=== PATIENT | male | born 1970 | race African-American/Black ===

== ENCOUNTER 2018-08-19 17:46 | Inpatient (IN) | payer SELFPAY ==
[2018-08-19 18:22] LABS: #Basophils 0.1 thou/uL (0.0-0.2); #Eosinphils 0.2 thou/uL (0.0-0.7); #Lymphocytes 2.4 thou/uL (1.20-3.40); #Neutrophils 8.1 thou/uL (1.40-6.50); %Basophils 0.6 % (0.0-1.0); %Eosinophils 1.4 % (0.0-10.0); %Lymphocytes 20.4 % (21.0-51.0); %Monocytes 8.5 % (0.0-10.0); %Neutrophils 69.1 % (42.0-75.0); Hemoglobin 15.3 g/dL (14.0-18.0); Mean Corpuscular HGB CONC 31.8 g/dL (32.0-36.0); Mean Corpuscular Hemoglobin 24.3 pg (27.0-31.0); Mean Corpuscular Volume 76.5 fL (78.0-98.0); Platelet Count 197 thou/uL (130-400); RBC Distribution Width 15.6 % (11.5-14.5); White Blood Cell (WBC) Count 11.6 thou/uL (4.8-10.8)
[2018-08-19 18:41] LABS: ALT (SGPT) 254 U/L (8-55); AST (SGOT) 138 U/L (5-34); Albumin 3.8 g/dL (3.5-5.0); Alkaline Phosphatase 251 U/L (40-150); Anion Gap 14 mmol/L (10-20); BUN (Urea Nitrogen) 8 mg/dL (8.9-20.6); Bilirubin, Total 14.4 mg/dL (0.2-1.2); Calc. Creatinine Clearance 0 mL/min (70-130); Calcium 9.5 mg/dL (7.8-10.44); Carbon Dioxide 30 mmol/L (22-29); Chloride 94 mmol/L (98-107); Estimated GFR-MDRD Greater than 90; Globulin 4.3 g/dL (2.4-3.5); Glucose 114 mg/dL (70-105); Potassium 3.4 mmol/L (3.5-5.1); Protein, Total 8.1 g/dL (6.0-8.3); Sodium 135 mmol/L (136-145)
--- NOTE | 2018-08-19 19:01 | ULT ---
RIGHT UPPER QUADRANT ULTRASOUND: HISTORY: Right upper quadrant pain. FINDINGS: Exam is limited due to patient body habitus. The gallbladder is not visualized. The visualized port ions of the liver demonstrate increased echogenicity, consistent with fatty infiltration. The common duct measures 4 mm in diameter. The right kidney is normal. The visualized portions of the pancrea s are unremarkable. No free fluid is seen. IMPRESSION: Limited examination, as above. POS: [facility]
[2018-08-19 19:25] LABS: Bilirubin, Total 13.9 mg/dL (0.2-1.2)
[2018-08-19 20:00] LABS: Bilirubin, Direct 10.5 mg/dL (0.1-0.3)
[2018-08-19] MEDS ORDERED: cloNIDine 0.1 MG TAB PO PRN (20:16)
[2018-08-19] MEDS ORDERED: Morphine 4 MG/ML VIAL SLOW IVP PRN (20:18)
[2018-08-19] MEDS ORDERED: Morphine 2 MG/ML SYRINGE SLOW IVP PRN (20:18)
[2018-08-19] MEDS ORDERED: Metoclopramide HCl 10 MG/2 ML VIAL IVP PRN (20:19)
[2018-08-19 22:11] VITALS: BMI 76.6
--- NOTE | 2018-08-19 22:31 | RAD ---
ABDOMEN TWO VIEWS: HISTORY: Abdominal pain. TECHNIQUE: Supine and upright views. FINDINGS: Scattered stool and gas seen throughout the colon. Small bowel gas pattern is unremarkable. No free air under either hemidiaphragm. Soft tissue attenuation limits the exam. IMPRESSION: Unremarkable bowel gas pattern. POS: [facility]
[2018-08-19] MEDS: Famotidine/PF 20 mg/2ml Vial SLOW IVP SCH (22:56)
[2018-08-19] MEDS: NS 0.9% w/ 20 MEQ KCL 1,000 ML/1,000 ML BAG IV SCH (22:56)
--- NOTE | 2018-08-19 23:17 | HP ---
CHIEF COMPLAINT: Stomach pain. HISTORY OF PRESENT ILLNESS: A 47-year-old male with history of morbid obesity, hypertension, dyslipidemia, who presents to the emergency room with a complaint of stomach pain. He reports that the onset was about a week ago in the right upper quadrant, which radiated to his back. He states it started about a 3/10 in intensity and describes it as a pulling sensation in his abdomen and throbbing in his back, which have both been constant. As the days have gone by, the pain has worsened to the point of being a 6/10 in intensity, starting last night and into today. He complains of anorexia, nausea, vomiting, and once had difficulty breathing secondary to the back pain, which has since resolved. He notes a prior history of similar symptoms about a year ago and states he was seen at [facility] and the symptoms resolved. He denies any diagnosis made at that time. He has noted certain foods can cause symptoms such as eggs and fried chicken. The patient has also noticed that his urine is very yellow, denies any dysuria, fevers or chills, he also denies any chest pain or difficulty breathing. There are no precipitating factors or relieving factors and he has not tried any pain medications for this. The patient also notes that he has not had a bowel movement in a week, and states he is not passing much gas. The patient evaluated in the emergency room, found to have a significantly elevated blood pressure as well as a T-bili and hospitalist called for admission. ALLERGIES: NONE KNOWN TO MEDICATION. CURRENT MEDICATIONS: Current medications reconciled with the patient; 1. Metoprolol succinate 50 mg daily. 2. Amlodipine 10 mg daily. 3. Crestor 10 mg at bedtime. 4. Lisinopril/hydrochlorothiazide 20-25 mg daily. PAST MEDICAL HISTORY: 1. Hypertension. 2. Dyslipidemia. 3. Morbid obesity. PAST SURGICAL HISTORY: Denies. SOCIAL HISTORY: Is a tobacco user, 1 pack per day, denies alcohol. 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 FAMILY HISTORY: Significant for heart disease in multiple family members. REVIEW OF SYSTEMS: Positive for anorexia, nausea, vomiting, an episode of dyspnea that has since resolved. Negative for fevers, chills, chest pain, shortness of breath and dysuria. All remaining review of systems are reviewed and negative. PHYSICAL EXAMINATION: VITAL SIGNS: Blood pressure is 184/142, pulse 75, respirations 16, temperature 98, sats 97% on room air. GENERAL: Awake, alert, responsive, in no apparent distress. Appears very comfortable, speaking in full sentences. HEENT: He has present scleral icterus. His oral mucosa is pink and dry. NECK: Supple and nontender. LYMPHATICS: No palpable cervical or supraclavicular lymphadenopathy. LUNGS: Clear to auscultation bilateral. No audible wheezing, rhonchi, or rales. HEART: Normal S1, S2. Regular rate and rhythm. No audible murmurs. ABDOMEN: Soft. Tenderness of palpation in the right upper quadrant consistent with a Ahmadi sign, no palpable abnormality. No rebound or guarding, and bowel sounds are present. EXTREMITIES: He has trace pitting edema, bilateral. SKIN: Thickened skin and hyperpigmentation of his lower extremities. NEUROLOGIC: No focal deficits. PSYCHIATRIC: Appears euthymic. Alert and oriented x4. VASCULAR: 2+ dorsalis pedis pulses. IMAGING: EKG, personally reviewed, sinus rhythm, left axis deviation, abnormal R-wave progression with a QT corrected of 467. No ST changes. Abdominal ultrasound shows fatty liver with a common bile duct of 4 mm. Gallbladder not visualized. Limited study. CT scan not performed secondary to body habitus, the patient's weight is over the weight limit for the scanner. LABORATORY DATA: CBC: 11.6, 15.3, 48.2, 197 with an MCV of 76. Chemistry: 135, 3.4, 94, 30, 8, 0.94, 114. LFTs: T. bilirubin 14.4, AST 138, ALT 254, alkaline phosphatase 251, total protein 8.1, albumin 3.9. IMPRESSION: 1. Right upper quadrant pain, elevated liver function tests concerning for an obstructive process. 2. Hypertension, uncontrolled. 3. Morbid obesity. 4. Dyslipidemia. 5. Hypokalemia, mild 6. Hyponatremia, mild. 7. Mild leukocytosis likely secondary to right upper quadrant. 8. Tobacco abuse. 9. Prolonged QT interval with a QTc of 467 PLAN: 1. Admission to the hospital. 2. IV fluid hydration, replace potassium. 3. General Surgery and GI consultation. 4. Managing his blood pressures by continuing his beta hector and calcium channel hector. We will hold his lisinopril/ hydrochlorothiazide in case any contrast studies are planned, and because the patient appears dehydrated. We will manage blood pressure with p.r.n. clonidine. Hold hydralazine as this can be associated with a hepatocellular injury. 5. Holding his statin as this may be affecting his liver. 6. N.p.o. status. 7. Avoid medications that can prolong the QT interval. Will use reglan for nausea and morphine for pain. 8. Tobacco replacement, if needed. 9. We will obtain a fasting ultrasound to further characterize his gallbladder as this was not visualized, and request Doppler study. 10. Obtain acute hepatitis panel, check coag markers. 11. We will see if able to perform an abdominal x-ray given the complaint of decreased flatus. 12. Deep venous thrombosis prophylaxis with pneumatic compression devices, if available. 13. Gastrointestinal prophylaxis. We will use IV famotidine. 14. Code status is full and surrogate decision maker is the patient's girlfriend as noted above. 15. Reviewed the plan of care with the patient. No questions or further needs at the end of evaluation. 16. The patient is at high risk given age, comorbidities and current presentation. Job ID: [id number] [id number]
[2018-08-19 23:43] LABS: HBCM Index 0.06 S/CO (0-0.79); HBSAg Index 0.32 S/CO (0-0.99); Hep A IgM AB Non-Reactive (NonReactive); Hep A IgM S/CO 0.23 S/CO (0-0.79); Hep B Surf Ag Non-Reactive S/CO (NonReactive); Hep C IgG Ab Non-Reactive (NonReactive); Hep C Index 0.04 S/CO (0-0.79); Hepatitis B Core IgM Abs Non-Reactive (NonReactive)
[2018-08-20 04:52] LABS: ALT (SGPT) 252 U/L (8-55); AST (SGOT) 139 U/L (5-34); Albumin 3.8 g/dL (3.5-5.0); Alkaline Phosphatase 257 U/L (40-150); Anion Gap 15 mmol/L (10-20); BUN (Urea Nitrogen) 8 mg/dL (8.9-20.6); Bilirubin, Total 15.3 mg/dL (0.2-1.2); Calc. Creatinine Clearance 381 mL/min (70-130); Calcium 9.6 mg/dL (7.8-10.44); Carbon Dioxide 30 mmol/L (22-29); Chloride 94 mmol/L (98-107); Estimated GFR-MDRD Greater than 90; Globulin 4.3 g/dL (2.4-3.5); Glucose 107 mg/dL (70-105); Potassium 3.6 mmol/L (3.5-5.1); Protein, Total 8.1 g/dL (6.0-8.3); Sodium 135 mmol/L (136-145)
[2018-08-20 05:28] LABS: Band 2 % (5-11); Hemoglobin 15.2 g/dL (14.0-18.0); Lymphocytes 21 % (21-51); MDiff Complete? YES; Mean Corpuscular HGB CONC 31.2 g/dL (32.0-36.0); Mean Corpuscular Volume 76.8 fL (78.0-98.0); Mean Platelet Volume 10.2 fL (7.4-10.4); Monocytes 12 % (0-10); Neutrophil 64 % (42-75); Platelet Count 196 thou/uL (130-400); Platelet Morphology Comment Appears Adequate; RBC Distribution Width 15.8 % (11.5-14.5); Red Blood Cell (RBC) Count 6.34 mill/uL (4.70-6.10); White Blood Cell (WBC) Count 11.5 thou/uL (4.8-10.8)
[2018-08-20] MEDS: NS 0.9% w/ 20 MEQ KCL 1,000 ML/1,000 ML BAG IV SCH ×3 (06:04→20:55)
[2018-08-20] MEDS: Famotidine/PF 20 mg/2ml Vial SLOW IVP SCH ×2 (09:01→20:55)
[2018-08-20] MEDS: Amlodipine 10 MG TAB PO SCH (09:01)
--- NOTE | 2018-08-20 11:22 | ULT ---
LIVER ULTRASOUND WITH DOPPLER: HISTORY: Right upper quadrant pain with elevated liver function tests. FINDINGS: The exam is limited due to patient body habitus. The liver is enlarged, measuring 24 cm in length. No definite focal mass or intrahepatic ductal dila tation is seen. The echogenicity of the liver is increased, consistent with fatty infiltration. The re are shadowing gallstones with thickening of the wall of the gallbladder, without pericholecystic f luid. The common duct measures 1.4 cm in diameter. No choledocholithiasis is seen. The spleen is n ormal, measuring 11.2 cm in length. The pancreas is not well visualized. The splenic artery is not visualized. The remainder of the hepatic, portal, and splenic vasculature is otherwise patent and de monstrates flow in the expected direction, with normal spectral wave-forms. No free fluid is seen. IMPRESSION: 1. Hepatomegaly and fatty liver. 2. Cholelithiasis with gallbladder wall thickening and common duct dilatation. POS: [facility]
[2018-08-20 11:37] LABS: Syphilis Antibody Nonreactive (Nonreactive); Syphilis Antibody Index 0.43 S/CO (<1.00 Non-Reactive)
[2018-08-20 11:40] LABS: HBCM Index 0.05 S/CO (0-0.79); HBSAg Index 0.34 S/CO (0-0.99); HIV (1/2) Antibody/Antigen Non-Reactive (NonReactive); HIV 1/2 INDEX 0.15 S/CO (<1.00); Hep A IgM AB Non-Reactive (NonReactive); Hep A IgM S/CO 0.22 S/CO (0-0.79); Hep B Core Total Ab Non-Reactive (NonReactive); Hep B Core Total Index 0.05 S/CO (0-0.79); Hep B Surf Ag Non-Reactive S/CO (NonReactive); Hep C IgG Ab Non-Reactive (NonReactive); Hep C Index 0.04 S/CO (0-0.79); Hepatitis B Core IgM Abs Non-Reactive (NonReactive)
[2018-08-20] MEDS ORDERED: Succinylcholine Chloride 20 MG/ML 10 ml SYRINGE FS ONE (11:43)
[2018-08-20] MEDS ORDERED: Dexamethasone 20 MG/5 ML VIAL ONE (11:43)
[2018-08-20] MEDS ORDERED: Lidocaine 1% PF 5 ML VIAL ONE (11:43)
[2018-08-20] MEDS ORDERED: Rocuronium Bromide 10 MG/ML (10ML VIAL) ONE (11:43)
[2018-08-20] MEDS ORDERED: ePHEDrine 50 MG/ML VIAL ONE (11:43)
[2018-08-20] MEDS ORDERED: PROPOFOL 200 MG/20 ML VIAL ONE (11:43)
[2018-08-20] MEDS ORDERED: Fentanyl 100 MCG/2 ML VIAL ONE (13:53)
[2018-08-20] MEDS ORDERED: Indomethacin 50 MG SUPP PR SCH (14:00)
[2018-08-20] MEDS ORDERED: Iothalamate Meglumine 60% 50 ML VIAL FS ONE (14:11)
[2018-08-20] MEDS ORDERED: Indomethacin 50 MG SUPP ONE (14:15)
[2018-08-20] MEDS ORDERED: Levofloxacin 500 mg/D5W 100 ml Premix Bag ONE (14:23)
[2018-08-20] MEDS ORDERED: SUGAMMADEX SODIUM 500 MG/5 ML VIAL ONE (15:21)
--- NOTE | 2018-08-20 15:49 | PDOC.EVN ---
Event Note - Event Note Event Note: Per Dr. Taylor, patient's PCP is Dr. Tran and he will be assuming care today. We will sign off for now.
[2018-08-20] MEDS ORDERED: Promethazine HCl 25 MG/ML VIAL SLOW IVP PRN (15:53)
[2018-08-20] MEDS ORDERED: Ondansetron HCl/PF 4 MG/2 ML Vial IVP PRN (15:53)
[2018-08-20] MEDS ORDERED: Promethazine HCl 25 MG/ML VIAL IM PRN (15:53)
--- NOTE | 2018-08-20 18:58 | CON ---
DATE OF CONSULTATION: 08/20/2018 HISTORY OF PRESENT ILLNESS: This is a 47-year-old morbidly obese man with a BMI 76.6. The patient presented to the emergency department with insidious onset epigastric right upper quadrant abdominal pain. The patient first experienced the 3/10 abdominal pain one week ago. He was unsure as to if this was related to fluids at the time. The pain had intensified to 6/10 yesterday. Pain is described as a sharp, radiating to his back and associated with multiple episodes of nausea, but no emesis. The patient otherwise denies any change in his bowel habits. The patient denies any fevers or chills. PAST MEDICAL HISTORY: Significant for morbid obesity, hyperlipidemia, and essential hypertension. PAST SURGICAL HISTORY: Denies any previous surgeries. SOCIAL HISTORY: He smokes a pack of cigarettes per day and has done so for over 20 years. He used to drink heavily, but has not had any alcohol over the last 1 year. 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 He denies any illicit drug abuse. FAMILY HISTORY: Notable for heart disease in various family members. PRE-HOSPITAL MEDICATIONS: Include: 1. Amlodipine 10 mg p.o. daily. 2. Lisinopril/hydrochlorothiazide combination 20/25 mg p.o. daily. 3. Metoprolol 50 mg p.o. daily. 4. Rosuvastatin 10 mg p.o. at bedtime. ALLERGIES: THE PATIENT DENIES ANY KNOWN DRUG ALLERGIES. REVIEW OF SYSTEMS: Ten-point review of systems essentially unremarkable except as stated in past medical history and chief complaint. PHYSICAL EXAMINATION: GENERAL: This reveals a 47-year-old morbidly obese man with a BMI 76.6, who is otherwise stated age. He is in no acute distress at time of my evaluation. VITAL SIGNS: Include blood pressure 136/91, pulse is 64, respiratory rate is 20, temperature 98 degrees Fahrenheit, and oxygen saturation 96% on room air. HEENT: Reveals normocephalic and atraumatic. Both pupils are equal, round, reactive to light and accommodation. He has bilateral scleral icterus present. HEART: Reveals regular rate and rhythm. No murmurs or gallops auscultated. LUNGS: Clear to auscultation bilaterally. Breathing, regular and nonlabored. ABDOMEN: Soft and morbidly obese. He has right upper quadrant tenderness to palpation with no Ahmadi sign present. Liver and spleen nonpalpable below costal margins. EXTREMITIES: Reveal 2+ radial and pedal pulses bilaterally. He has bilateral 2+ ankle edema present. NEUROLOGIC: Reveals no focal deficits present. LABORATORY FINDINGS: Today include CBC with 11,500 white blood cells, hemoglobin and hematocrit of 15.2 and 48.7 respectively. Platelet count is 196,000. Metabolic profile; sodium 135, potassium 3.6, chloride is 94, bicarb 30, BUN is 8, creatinine 0.86, glucose 107. Total bilirubin is 15.3, AST and ALT are 139 and 252 respectively. Alkaline phosphatase is also elevated at 257. Hepatitis profile is negative. I have personally reviewed radiographic studies including abdominal ultrasound, which is remarkable for multiple intraluminal gallstones. There is gallbladder wall thickening, but no pericholecystic fluid present. Common bile duct is markedly dilated for this patient's age at 14 mm. IMPRESSION: 1. Acute cholecystitis with cholelithiasis. 2. Probable choledocholithiasis. 3. Morbid obesity. 4. History of essential hypertension. RECOMMENDATIONS: 1. The patient will be evaluated by Gastroenterology in consideration for ERCP. 2. We will consider a laparoscopic cholecystectomy after ERCP has been performed. 3. Above findings and plan have been discussed with the patient. 4. I have advised him of the risks and benefits of proposed laparoscopic cholecystectomy to include but not limited to bleeding, infection, injury to bile duct or surrounding structures. 5. The patient indicates understanding information I provided him today. I have answered his questions. Thank you again, Dr. Mcginnis for allowing me the opportunity to participate in the care of this patient. Job ID: [id number]
--- NOTE | 2018-08-20 21:22 | CON ---
DATE OF CONSULTATION: 08/20/2018 REASON FOR CONSULTATION: Abnormal liver test and right upper quadrant pain. HISTORY OF PRESENT ILLNESS: Mr. Albert is a pleasant 47-year-old, who for the past year or so has been having intermittent problems of right upper quadrant pain occasionally radiating to the back. In the past month, he has had more serious bouts, where he will have severe vomiting. Once it starts, he will be sick for several days. 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 She gives most of the history. He notes that when he has had the pain that will be up in the mid upper abdomen to the right upper quadrant extending to the ridge and occasionally go right to his back between the shoulder blades or underneath the right shoulder blade. He has had no fever or chills. At this time when it happened starting about several days ago, his eyes began to yellow. His notes that his urine became dark early last week about 2 days into the illness that worsened up until yesterday when after he restarted on IV fluids, the urine started getting a little bit merry go round attendant. He denies fever or chills. He has had a lot of vomiting of bilious material. He denies weight loss. In the emergency room, he had an ultrasound done at 1600 hours last night, but radiologist reported his exam was limited secondary to poor body habitus and the gallbladder could not be seen and the duct was 4 mm in size. A repeat ultrasound was done later with enlarged liver 24 cm in length, this is fatty liver, it was showing gallstones, thickened walled gallbladder and common duct, they thought was 1.4 cm in size. Attempts were made to get a CAT scan on the patient, but this was unsuccessful secondary to his weight. The patient's notes that he gets labs fairly routinely. He has not had elevated liver tests in the past. Reviewing this in February 2018, here his liver tests were completely normal. He denies starting any new medications, sick contacts, alcohol use, or heavy Tylenol use. Labs yesterday showed a bilirubin of 14.4, the AST and ALT of 138 and 254 with alkaline phosphatase of 251. Today, bilirubin 15.3, AST and ALT of 139 and 252, alkaline phosphatase of 257. Renal function is stable. Hepatitis A, B, C, and HIV are all nonreactive. INR is 1. White count 11.5, hemoglobin 15.2, MCV 76, and platelet count 169. PAST MEDICAL HISTORY: Hypertension, hyperlipidemia, and morbid obesity. PAST SURGICAL HISTORY: None. MEDICATIONS: At home: 1. Metoprolol. 2. Amlodipine. 3. Crestor. 4. Lisinopril/hydrochlorothiazide. SOCIAL HISTORY: The patient smokes one pack per day. Denies alcohol use. 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 FAMILY HISTORY: Coronary artery disease in multiple family members. REVIEW OF SYSTEMS: Anorexia, nausea, vomiting, abdominal pain. No fever, chills, shortness of breath, dysuria, frequency, urgency, or chest pain at this time. PHYSICAL EXAMINATION: GENERAL: Mr. Albert is resting comfortably in bed. He has multiple family members at his bedside. VITAL SIGNS: His weight on admission was 556 pounds. Temperature is 98, pulse 66, and blood pressure 141/97. LUNGS: Clear. HEART: Distant heart sounds. ABDOMEN: Morbidly obese. No organomegaly can be palpated, but this is due to body habitus. There is mild tenderness in epigastric right upper quadrant, but not much. EXTREMITIES: Reveal brawny edema and venous stasis. He is alert and oriented to person, place, and time. LABORATORY DATA: Noted on admission, his lipase was 39 at 1900 hours yesterday. ASSESSMENT: This is a 47-year-old gentleman, morbid obesity, who has come in with right upper quadrant pain and symptoms consistent with biliary colic over the past year or so. Over the past month, they have been worse. Over the past week, he has been jaundiced with cholestatic liver enzymes. Initial ultrasound showed fatty liver, but could not make out much of anything else, so repeat exam they were able to make out gallstones and 1.4 cm common bile duct. This would go along with suspected choledocholithiasis. Unfortunately, he was unable to get a CAT scan for further evaluation of the large liver. Because of his size, the CAT scan could not hold him. RECOMMENDATIONS: At this time, I have talked with Dr. Padilla, General Surgery and he prefers to proceed with ERCP before lap demarcus, which sounds reasonable in light of his elevated numbers. I talked with him and his significant other about the risks of the procedure that is pancreatitis, perforation, bleeding, reaction to medication, aspiration, anesthetic events, and the possible that we could not get into the bile duct to remove stones. He understands these. I also explained to him the rationale for proceeding with that which makes the laparoscopic cholecystectomy much easier form, we have to open to clear the bile duct for investigated and also that he would be at risk for pancreatitis with choledocholithiasis or even cholangitis fully life-threatening. He understands these and wished to proceed. We will go and do that today. Job ID: [id number]
--- NOTE | 2018-08-20 21:27 | RAD ---
ERCP: 08/20/18 HISTORY: Stent placement. This is a series of twelve C-arm films which show a biliary stent being placed. It appears to be in g ood position. IMPRESSION: Placement of biliary stent. POS: [facility]
[2018-08-21] MEDS: NS 0.9% w/ 20 MEQ KCL 1,000 ML/1,000 ML BAG IV SCH ×2 (05:15→19:06)
[2018-08-21] MEDS ORDERED: Iothalamate Meglumine 60% 50 ML VIAL FS ONE (06:33)
[2018-08-21] MEDS ORDERED: Bupivacaine/Epinephrine 0.25% 30 ML VIAL ONE ×2 (06:33→12:14)
[2018-08-21 06:35] LABS: ALT (SGPT) 214 U/L (8-55); AST (SGOT) 110 U/L (5-34); Albumin 3.5 g/dL (3.5-5.0); Alkaline Phosphatase 236 U/L (40-150); Anion Gap 11 mmol/L (10-20); BUN (Urea Nitrogen) 10 mg/dL (8.9-20.6); Bilirubin, Total 9.6 mg/dL (0.2-1.2); Calc. Creatinine Clearance 356 mL/min (70-130); Calcium 9.1 mg/dL (7.8-10.44); Carbon Dioxide 30 mmol/L (22-29); Chloride 97 mmol/L (98-107); Estimated GFR-MDRD Greater than 90; Globulin 3.8 g/dL (2.4-3.5); Glucose 109 mg/dL (70-105); Lipase 11 U/L (8-78); Potassium 3.5 mmol/L (3.5-5.1); Protein, Total 7.3 g/dL (6.0-8.3); Sodium 134 mmol/L (136-145)
[2018-08-21] MEDS ORDERED: Potassium Chloride 20 MEQ TAB PO SCH (07:00)
[2018-08-21 08:03] LABS: Hemoglobin 13.8 g/dL (14.0-18.0); Mean Corpuscular Hemoglobin 23.1 pg (27.0-31.0); Mean Platelet Volume 10.5 fL (7.4-10.4); Platelet Count 193 thou/uL (130-400); RBC Distribution Width 15.5 % (11.5-14.5); Red Blood Cell (RBC) Count 5.97 mill/uL (4.70-6.10); White Blood Cell (WBC) Count 14.6 thou/uL (4.8-10.8)
[2018-08-21 08:17] LABS: Band 1 % (5-11); Hypochromia SLIGHT = 6-15 cells (100X) (0-5/hpf); Lymphocytes 19 % (21-51); MDiff Complete? YES; Microcytosis SLIGHT = 6-15 cells (100X) (0-5/hpf); Monocytes 4 % (0-10); Neutrophil 76 % (42-75); Platelet Morphology Comment Appears Adequate; Polychromasia SLIGHT = 2-3 cells (100X) (0-2/hpf); Target Cells MODERATE= 6-15 cells (100X) (0-1/hpf)
--- NOTE | 2018-08-21 09:58 | OP ---
DATE OF PROCEDURE: 08/20/2018 PROCEDURE PERFORMED: ERCP with sphincterotomy and placement of a 7 cm x 11.5-Azeri plastic stent for biliary obstruction. PREPROCEDURE DIAGNOSES: Recurrent abdominal pain suggestive of biliary colic with elevated LFTs and obstructive pattern and an ultrasound that reportedly showed dilated common bile duct and gallstones suggestive of choledocholithiasis. POSTPROCEDURE DIAGNOSES: 1. Dilated common bile duct to least 15 mm, dilated intrahepatic biliary tree. 2. No obvious transition point was seen, but in the mid common bile duct became very difficult to pass the large balloon, also after occlusion cholangiogram, the duct distal to the mid duct would drain very quickly, but without a well-defined stricture in this area. 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 3. Sphincterotomy was performed and an 11.5-Azeri x 7 cm plastic stent was placed in the biliary tree with good drainage of contrast. There was never drainage of the bile seen. RECOMMENDATIONS: 1. Typically, we would recommend MRCP at this point in time, but the patient is too large for either our MRI machine here or the CT scan machine. Plans are for tomorrow for laparoscopy with possible laparotomy. I have informed the surgeon that there may be risk of a Mirizzi syndrome that a biliary stent is in place to help guide with anatomy if needed. 2. Agree with plan for lap demarcus tomorrow. 3. The patient will need ERCP for stent removal at a later date, should be able to perform this in a supine position and will have to be intubated, hopefully. 4. Repeat LFTs tomorrow. 5. Continue IV antibiotics. ANESTHESIA: General endotracheal anesthesia, Indocin rectal 100 mg, Levaquin 500 mg IV. DESCRIPTION OF PROCEDURE: The patient was informed of the risks, benefits, and possible complications of endoscopy including perforation, bleeding, reaction to medication, aspiration, and informed consent was obtained. We informed the risks specifically of pancreatitis, perforation, bleeding, aspiration, and anesthetic complications. He was intubated and then carefully turned to the prone position on the table. We tried to do it supine, but I could not get good orientation to the ampulla for cannulation. Once he was in place, a side-viewing duodenoscope was advanced through the bite block into the esophagus and the second and third portions. The ampulla was brought into view. Free cannulation obtained easily, but the guide catheter seemed to stop at the mid common bile duct. Cholangiogram however filled all the bile duct to about a centimeter and a half. There was concern for possible filling defect or narrowing behind the scope and was not as good filling here but no distinct lesion such as a stone. 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 It was difficult to get fluoroscopic images secondary to the equipment in the operating room and the fact that it was difficult getting good images for the patient's size. Ultimately, the decision was made to sweep the duct with a 12-18 mm balloon, which was done three times, the contrast would come through, but the balloon would come with kind of quite a bit of resistance at the mid common bile duct, again that would come through, inflated to 15 mm without difficulty. Ultimately, we did not identify distinct stone in this region, decision was made to place a stent. A 7 cm x 11.5-Azeri stent was placed across this region with good drainage of contrast documented endoscopically and fluoroscopically with slow drainage of the intrahepatic ducts even but no bile was ever seen. The scope was removed. The patient tolerated the procedure well with no complications. Recommendations as above. I have discussed the findings with General Surgery. Job ID: [id number]
[2018-08-21] MEDS ORDERED: CEFAZOLIN 1 GM VIAL ONE (12:02)
[2018-08-21] MEDS ORDERED: Rocuronium Bromide 50 MG/5 ML VIAL ONE (14:01)
[2018-08-21] MEDS ORDERED: Phenylephrine HCL 10 MG/ML VIAL ONE (14:21)
[2018-08-21] MEDS ORDERED: Ondansetron PF 4 MG/2 ML Vial ONE (14:21)
[2018-08-21] MEDS ORDERED: Rocuronium Bromide 10 MG/ML (10ML VIAL) ONE (14:21)
[2018-08-21] MEDS ORDERED: Succinylcholine Chloride 20 MG/ML 10 ml SYRINGE FS ONE (14:21)
[2018-08-21] MEDS ORDERED: PROPOFOL 200 MG/20 ML VIAL ONE (14:21)
[2018-08-21] MEDS ORDERED: Ketorolac Tromethamine 30 MG/ML VIAL ONE (14:21)
[2018-08-21] MEDS ORDERED: Glycopyrrolate 0.2 MG/ML 5 ML SYRINGE ONE (14:21)
[2018-08-21] MEDS ORDERED: Dexamethasone 20 MG/5 ML VIAL ONE (14:21)
[2018-08-21] MEDS ORDERED: Lidocaine 1% PF 5 ML VIAL ONE (14:21)
[2018-08-21] MEDS ORDERED: Ondansetron HCl/PF 4 MG/2 ML Vial IVP PRN (15:40)
[2018-08-21] MEDS ORDERED: Promethazine HCl 25 MG/ML VIAL SLOW IVP PRN (15:40)
[2018-08-21] MEDS ORDERED: Promethazine HCl 25 MG/ML VIAL IM PRN (15:40)
[2018-08-21] MEDS ORDERED: HYDROcodone/Acetaminophen 10/325 mg Tablet PO PRN (16:18)
[2018-08-21] MEDS ORDERED: Ibuprofen 600 MG TAB PO PRN (16:18)
[2018-08-21] MEDS ORDERED: traMADol HCl 50 MG TAB PO PRN ×2 (16:29→16:30)
[2018-08-21] MEDS: Famotidine/PF 20 mg/2ml Vial SLOW IVP SCH ×2 (17:54→20:42)
--- NOTE | 2018-08-21 17:56 | OP ---
DATE OF PROCEDURE: 08/21/2018 PREOPERATIVE DIAGNOSIS: Acute cholecystitis with cholelithiasis. POSTOPERATIVE DIAGNOSIS: Acute cholecystitis with cholelithiasis. OPERATION PERFORMED: Laparoscopic cholecystectomy. ANESTHESIA: General endotracheal. ESTIMATED BLOOD LOSS: 200 mL. FLUIDS GIVEN: 2000 mL crystalloids. COUNTS: Sponge and instrument counts were reported as correct x2. COMPLICATIONS: None apparent at the time of operation. INDICATIONS FOR OPERATION: A 47-year-old man, who is morbidly obese with a BMI of 76.6. The patient was admitted with acute cholecystitis with cholelithiasis and suspected choledocholithiasis. He underwent an uneventful ERCP yesterday with sphincterotomy and biliary stent placement. LFTs were resolving by today, although still markedly elevated. The patient was brought to the operating room today for laparoscopic cholecystectomy. Findings are consistent with contracted intrahepatic gallbladder with significant omental adhesions. DESCRIPTION OF OPERATION: Informed consent was obtained from the patient. He was brought to the operating room and placed in supine position. Following general anesthesia, the abdomen was sterilely prepped and draped in usual fashion. The skin in the right upper quadrant was anesthetized with 1% lidocaine plain. A stab incision was made here using an 11 scalpel. Through this, a Veress needle was inserted and placed in the peritoneal cavity, through which the abdomen was insufflated with 2 L of CO2 gas. Intraabdominal pressure was noted at 4 mmHg. Following abdominal insufflation, Veress needle was removed and a 5 mm trocar introduced using a Visiport under laparoscopy. Laparoscopy confirmed proper placement of the port, no injuries to underlying structures. Under direct laparoscopy, a 5 mm supraumbilical, right lateral subcostal and a 12 mm epigastric ports were placed after the overlying skin was infiltrated with 0.25% Marcaine with epinephrine, and appropriate incision was then made. The patient was placed in reverse Trendelenburg position, unable to rotate the patient to the left due to significant abdominal obesity with large panniculus, which made placement difficult. I introduced the Prestige grasper through the epigastric port site, using this to elevate the liver. Omental adhesions were then meticulously taken down to reveal the fundus of the contracted gallbladder. Another Prestige grasper was introduced through the right lateral subcostal port, grasping the fundus of the gallbladder, which was slightly elevated cephalad. Omental adhesions were then tediously, but meticulously taken down from the remainder of the gallbladder. A second Prestige grasper was introduced through the right medial subcostal port. I grasped the Niranjan pouch, which was retracted laterally. The cystic artery which was anterior coursing was dissected free from surrounding structures at the triangle of Calot. The artery was divided between clips, applying 2 clips proximally and 1 clip at the junction of the cystic artery and gallbladder. The cystic duct was markedly dilated. This was dissected free from surrounding structures. I attempted to divide this between clips, but was not able to apply the clip all the way through. The cystic duct stump was then secured using an Endoloop. The gallbladder itself was removed from the liver bed using cautery and delivered off the abdominal cavity using an EndoCatch. Operative site was inspected for good hemostasis. There was a fair amount of blood loss during the dissection. Hemostasis was readily achieved at the gallbladder fossa, however, using 1 x 2 inch piece of Fibrillar. A #19 Quintin drain was introduced into the subhepatic space and allowed to exit the abdominal cavity through the right lateral subcostal port. Fascia of the epigastric port was then closed using 0 Vicryl suture and Endoclosure device under laparoscopy. The abdomen was desufflated. All ports and instruments were removed and accounted for. Skin incisions were closed using 4-0 Monocryl suture in subcuticular fashion. Dermabond was applied over incisional closure. The patient tolerated the operation without any apparent complication and was returned to recovery room in satisfactory condition. Job ID: [id number]
[2018-08-21] MEDS ORDERED: Ketorolac Tromethamine 30 MG/ML VIAL IVP SCH (18:00)
[2018-08-21] MEDS ORDERED: traMADol HCl 50 MG TAB PO SCH (18:00)
[2018-08-21] MEDS: Acetaminophen 325 MG TAB PO SCH ×2 (18:12→23:14)
[2018-08-21] MEDS: Amlodipine 10 MG TAB PO SCH (18:12)
--- NOTE | 2018-08-21 20:40 | PRG ---
DATE OF SERVICE: 08/21/2018 SUBJECTIVE: Mr. Albert is a 47-year-old, had ERCP with stent yesterday and had a lap demarcus today. Apparently, there was quite a bit of inflammation. Presently, the patient is doing well. He is tolerating diet. He has a AGUS drain on the right side. OBJECTIVE: VITAL SIGNS: Temperature is 98, pulse 81, and blood pressure 117/111 to 158/100. ABDOMEN: Nontender. He is very morbidly obese. I am unable to palpate any tenderness or organomegaly. LABORATORY DATA: White count 14, hemoglobin 13, MCV 77, platelet count 76. Bilirubin is 9.6 down from 14 yesterday. AST and ALT are 110 and 214 down from 138 and 254. Alkaline phosphatase is 236 down from 251. Lipase 11. Hepatitis A, B, and C and HIV studies are negative. ASSESSMENT: 1. Questionable biliary obstruction. He may have had a little bit of Mirizzi syndrome. There are no overt stones in the duct. The stent was left in place. 2. Apparently, he had severe cholecystitis, then cholecystectomy today. His AGUS drain intact in space. RECOMMENDATIONS: Continue antibiotics. Advance diet as tolerated. We will follow along with surgery. He will need his stent removed in about a month. Job ID: [id number]
[2018-08-21] MEDS: Ketorolac Tromethamine 30 MG/ML VIAL IVP SCH (20:43)
[2018-08-22] MEDS: Ketorolac Tromethamine 30 MG/ML VIAL IVP SCH (03:54)
[2018-08-22] MEDS: Acetaminophen 325 MG TAB PO SCH ×3 (05:18→17:29)
[2018-08-22 05:41] LABS: Hemoglobin 13.8 g/dL (14.0-18.0); Lymphocytes 22 % (21-51); MDiff Complete? YES; Mean Corpuscular HGB CONC 32.4 g/dL (32.0-36.0); Mean Corpuscular Hemoglobin 24.7 pg (27.0-31.0); Mean Corpuscular Volume 76.2 fL (78.0-98.0); Mean Platelet Volume 10.4 fL (7.4-10.4); Monocytes 8 % (0-10); Neutrophil 70 % (42-75); Platelet Count 185 thou/uL (130-400); Platelet Morphology Comment Appears Adequate; RBC Distribution Width 15.4 % (11.5-14.5); Red Blood Cell (RBC) Count 5.58 mill/uL (4.70-6.10); White Blood Cell (WBC) Count 15.3 thou/uL (4.8-10.8)
[2018-08-22] MEDS ORDERED: Senokot 8.6 MG TAB PO PRN (06:28)
[2018-08-22] MEDS: Amlodipine 10 MG TAB PO SCH (09:13)
[2018-08-22] MEDS: Ibuprofen 800 MG TAB PO SCH ×2 (09:13→17:28)
[2018-08-22] MEDS: Enoxaparin Sodium 40 MG/0.4 ML SYRINGE SC SCH ×2 (09:14→20:31)
[2018-08-22] MEDS: Famotidine/PF 20 mg/2ml Vial SLOW IVP SCH ×2 (09:14→20:31)
[2018-08-22] MEDS: Polyethylene Glycol 3350 17 GM Packet PO SCH (09:15)
[2018-08-22 12:12] LABS: ALT (SGPT) 300 U/L (8-55); AST (SGOT) 262 U/L (5-34); Albumin 3.3 g/dL (3.5-5.0); Alkaline Phosphatase 244 U/L (40-150); Anion Gap 14 mmol/L (10-20); BUN (Urea Nitrogen) 14 mg/dL (8.9-20.6); Bilirubin, Direct 7.9 mg/dL (0.1-0.3); Bilirubin, Total 12.7 mg/dL (0.2-1.2); Calc. Creatinine Clearance 368 mL/min (70-130); Carbon Dioxide 27 mmol/L (22-29); Chloride 99 mmol/L (98-107); Estimated GFR-MDRD Greater than 90; Glucose 108 mg/dL (70-105); Potassium 4.5 mmol/L (3.5-5.1); Protein, Total 7.5 g/dL (6.0-8.3); Sodium 135 mmol/L (136-145)
--- NOTE | 2018-08-22 13:51 | PRG ---
DATE OF SERVICE: 08/22/2018 SUBJECTIVE: The patient is feeling well this morning. Pain is well controlled with medications. He has not passed any gas or had a bowel movement, but has been up walking in the halls. He had tolerated a clear liquid diet last night for dinner, but did not realize he could call and order breakfast this morning. He will have a regular diet for lunch. He had 4 bowel movements yesterday. OBJECTIVE: VITAL SIGNS: Blood pressure 120/81, temperature 98, pulse is 70, respirations 14, SpO2 93% on room air. GENERAL: Morbidly obese male, in no acute distress. Alert and oriented. HEENT: Normocephalic, atraumatic. Bilateral scleral icterus. NECK: Supple. Trachea midline. CARDIAC: Regular rate and rhythm. No murmurs. LUNGS: Clear to auscultation bilaterally. No respiratory distress. ABDOMEN: Morbidly obese. Appropriately tender to palpation. No rigidity or rebound. He has umbilical incision, epigastric, and two right subcostal incisions are clean, dry, and intact. The epigastric incision, an epigastric bandage was covered with serosanguineous drainage. This was changed. AGUS drain with minimal serosanguineous fluid. EXTREMITIES: 2+ radial pulses bilateral. Bilateral 2+ ankle edema. Moves all four extremities. NEURO: No focal deficits. LABORATORY FINDINGS: White blood cell count 15.3, hemoglobin 13.8, hematocrit 42.5. Sodium 135, glucose 108, total bilirubin 12.7, direct bilirubin 7.9, AST 262, ALT 300, alkaline phosphatase 244, albumin 3.3. Hepatitis studies, hepatitis, HIV, and RPR nonreactive. ASSESSMENT: 1. Acute cholecystitis with cholelithiasis. 2. Choledocholithiasis, possible Mirizzi syndrome. 3. Morbid obesity. 4. Essential hypertension. PLAN: The patient is postoperative day #1, status post laparoscopic cholecystectomy with multiple adhesions during surgery. He has been seen by GI, where he underwent ERCP with stent placement prior to cholecystectomy. We will discontinue Levaquin today as well as adjust the patient's pain regimen of by discontinuing tramadol and changing Toradol to p.o. ibuprofen and continue Tylenol. He is tolerating clear liquid diet. We will advance this to a regular diet. We started a bowel regimen of senna and MiraLAX. Hepatitis studies have been negative. He is clear from a surgical standpoint for discharge. This patient was seen and evaluated by Dr. Padilla during morning rounds. Plan was discussed with the patient and family, who are in agreement with the plan. Job ID: [id number]
[2018-08-23] MEDS ORDERED: Acetaminophen 325 MG TAB ONE (05:13)
[2018-08-23] MEDS: Famotidine/PF 20 mg/2ml Vial SLOW IVP SCH ×2 (10:02→19:39)
[2018-08-23] MEDS: Amlodipine 10 MG TAB PO SCH (10:04)
[2018-08-23] MEDS: Ibuprofen 800 MG TAB PO SCH ×3 (10:04→17:13)
[2018-08-23] MEDS: Polyethylene Glycol 3350 17 GM Packet PO SCH (10:04)
[2018-08-23] MEDS: Enoxaparin Sodium 40 MG/0.4 ML SYRINGE SC SCH ×2 (10:04→19:39)
[2018-08-23] MEDS: Acetaminophen 325 MG TAB PO SCH ×3 (10:05→17:13)
[2018-08-23 10:27] LABS: #Lymphocytes 2.4 thou/uL (1.20-3.40); #Monocytes 1.3 thou/uL (0.11-0.59); #Neutrophils 8.7 thou/uL (1.40-6.50); %Basophils 0.3 % (0.0-1.0); %Eosinophils 0.9 % (0.0-10.0); %Lymphocytes 19.3 % (21.0-51.0); %Monocytes 10.1 % (0.0-10.0); %Neutrophils 69.3 % (42.0-75.0); Hemoglobin 12.7 g/dL (14.0-18.0); Mean Corpuscular HGB CONC 32.2 g/dL (32.0-36.0); Mean Corpuscular Hemoglobin 24.7 pg (27.0-31.0); Mean Corpuscular Volume 76.6 fL (78.0-98.0); Mean Platelet Volume 10.8 fL (7.4-10.4); Platelet Count 186 thou/uL (130-400); RBC Distribution Width 15.6 % (11.5-14.5); Red Blood Cell (RBC) Count 5.14 mill/uL (4.70-6.10); White Blood Cell (WBC) Count 12.5 thou/uL (4.8-10.8)
[2018-08-23 10:28] LABS: #Eosinphils 0.1 thou/uL (0.0-0.7)
--- NOTE | 2018-08-23 11:16 | PRG ---
DATE OF SERVICE: 08/22/2018 SUBJECTIVE: Mr. Albert is resting up in chair comfortably. He had his AGUS pulled today. The nurse notes he has had some leakage of drainage at the AGUS site, bandage has been placed now. He denies any overt pain or fever. He has only voided a very little bit. The patient states he has actually voided none today. OBJECTIVE: VITAL SIGNS: Temperature is 98, pulse 73, blood pressure is 120/85. He is sitting up in a chair against the wall. GENERAL: He is in no overt distress. LUNGS: Clear. HEART: Regular rate and rhythm without clicks or murmurs. ABDOMEN: Protuberant and obese. He has a dressing where the AGUS site was and it is wet. His trocar sites look fine. EXTREMITIES: Reveal brawny edema. LABORATORY DATA: White count 15.3, up from 11.6 on admission; platelet count is 185; hemoglobin 13.8. Sodium 135, BUN and creatinine are 14 and 0.89. Bilirubin has jumped up to 12.7 from 9.6 yesterday, it was 14.4 on admission. AST is 262, it was 138 on admission. ALT is 300, it was 254 on admission. Alkaline phosphatase is 344, it was 251 on admission. ASSESSMENT: I talked to Dr. Padilla. The patient has severe cholecystitis. It was a difficult surgery secondary to body habitus as was an ERCP for that same reason. his elevated liver enzymes maybe a combination of perihepatitis with severe gallbladder disease. He may have had some extrinsic compression of the biliary tree from the severe gallbladder disease, although, ERCP films are very difficult to interpret secondary to body habitus and poor penetration, but he did seem to have the entire biliary tree, intrahepatic, common bile duct, all dilated. Stent is in place. His liver tests have been fluctuating. He does not appear to be septic at all, but I think that in light of his size, the difficulty he has had with imaging, the difficulty he had with surgery, he should remain in the hospital until we see some improvement in his LFTs. If his LFTs are not improving tomorrow, we will try to get a HIDA scan as he could not get a CT scan. We may be able to get a HIDA scan just to see if the liver is draining. We will continue to follow with you. We will restart his antibiotics. We will continue DVT prophylaxis. I had discussed this with Dr. Tran and Dr. Padilla. Job ID: [id number]
--- NOTE | 2018-08-23 12:39 | PRG ---
DATE OF SERVICE: 08/23/2018 SUBJECTIVE: The patient is feeling well this morning. He is ambulating in the [place] without difficulty. Pain is well controlled with medications. He is still not passing any gas or had bowel movement. He is tolerating regular diet. He denies any change in abdominal pain from yesterday. OBJECTIVE: VITAL SIGNS: Blood pressure 143/85, temperature 97.9, pulse 61, respirations 16, and SpO2 of 97% on room air. GENERAL: Morbidly obese male, in no acute distress. Alert and oriented. HEENT: Normocephalic and atraumatic. Bilateral scleral icterus. NECK: Supple. Trachea midline. CARDIAC: Regular rate and rhythm. No murmurs. LUNGS: Clear to auscultation bilaterally. No respiratory distress. ABDOMEN: Morbidly obese. Nontender to palpation. No rigidity or rebound. Umbilical and epigastric incision clean, dry, and intact. Two right subcostal incisions, one draining serosanguineous fluid. EXTREMITIES: 2+ radial pulses bilaterally. Moves all 4 extremities. NEUROLOGIC: No focal deficits. LABORATORY FINDING: White blood cell count 12.5, hemoglobin 12.7, hematocrit 39.4. Transaminases have decreased from yesterday. Please see medical record for exact values. Total bilirubin 16.5, increased from yesterday at 12.7. DIAGNOSTIC IMAGING: There are no new diagnostics to review. ASSESSMENT: 1. Acute cholecystitis with cholelithiasis. 2. Choledocholithiasis, possible Mirizzi syndrome. 3. Morbid obesity. 4. Essential hypertension. PLAN: The patient is postop day #2 status post laparoscopic cholecystectomy with multiple adhesions. He is being followed by GI. His liver enzymes have decreased today, but his total bilirubin has increased to 16.5. He will go for a HIDA scan today. Levaquin has been restarted. We will continue to take the patient's current pain regimen and bowel regimen. This patient was discussed with Dr. Padilla during morning rounds. Plan was discussed with the patient and family, who are in agreement with the plan. Job ID: [id number] MTDD
[2018-08-23 15:44] LABS: Albumin 3.3 g/dL (3.5-5.0); Anion Gap 12 mmol/L (10-20); BUN (Urea Nitrogen) 15 mg/dL (8.9-20.6); Bilirubin, Total 16.5 mg/dL (0.2-1.2); Calc. Creatinine Clearance 404 mL/min (70-130); Calcium 8.9 mg/dL (7.8-10.44); Carbon Dioxide 28 mmol/L (22-29); Chloride 98 mmol/L (98-107); Estimated GFR-MDRD Greater than 90; Globulin 3.4 g/dL (2.4-3.5); Glucose 120 mg/dL (70-105); Potassium 3.4 mmol/L (3.5-5.1); Protein, Total 6.7 g/dL (6.0-8.3); Sodium 135 mmol/L (136-145)
[2018-08-23 15:45] LABS: ALT (SGPT) 280 U/L (8-55); AST (SGOT) 185 U/L (5-34); Alkaline Phosphatase 291 U/L (40-150)
--- NOTE | 2018-08-23 16:15 | NM ---
EXAM: NM Hida (No EF) PROVIDED CLINICAL HISTORY: Elevated bilirubin post ERCP and cholecystectomy. Pharmaceuticals: 5.1 mCi technetium 99m mebrofenin, IV COMPARISON: None FINDINGS: There is prompt uptake of radiotracer by the liver with increase in activity in the liver throughout the study imaging up to 60 minutes. There also appears to be increased blood pool activity within the region of the heart. However, there is no activity seen in the region of the bile ducts, and ther e is no bowel activity after 60 minutes. A 4 hour delayed image was obtained, and again no activity is seen in the expected region of the bile ducts or in the small bowel. There is a focus of increased uptake seen within the midline overlying the pelvis likely related to uptake within the urinary bladder secondary to absence of activity in the bile ducts. IMPRESSION: 1. Prompt uptake of radiotracer by the liver without activity seen within the bile ducts or small bow el. Differential considerations would include hepatic dysfunction or biliary ductal obstruction.
[2018-08-23 16:33] LABS: Bilirubin, Direct 12.1 mg/dL (0.1-0.3)
[2018-08-23] MEDS ORDERED: Ibuprofen 800 MG TAB PO PRN (17:39)
[2018-08-23 18:43] LABS: ALT (SGPT) 264 U/L (8-55); AST (SGOT) 164 U/L (5-34); Albumin 3.4 g/dL (3.5-5.0); Alkaline Phosphatase 303 U/L (40-150); Bilirubin, Total 17.2 mg/dL (0.2-1.2)
[2018-08-23 19:07] LABS: Bilirubin, Direct 12.5 mg/dL (0.1-0.3)
[2018-08-24 05:23] LABS: Phosphorus 2.6 mg/dL (2.3-4.7)
[2018-08-24 05:26] LABS: ALT (SGPT) 231 U/L (8-55); AST (SGOT) 135 U/L (5-34); Albumin 3.2 g/dL (3.5-5.0); Alkaline Phosphatase 290 U/L (40-150); Anion Gap 10 mmol/L (10-20); BUN (Urea Nitrogen) 11 mg/dL (8.9-20.6); Bilirubin, Total 17.7 mg/dL (0.2-1.2); Calc. Creatinine Clearance 390 mL/min (70-130); Calcium 8.7 mg/dL (7.8-10.44); Carbon Dioxide 31 mmol/L (22-29); Chloride 98 mmol/L (98-107); Estimated GFR-MDRD Greater than 90; Glucose 115 mg/dL (70-105); Magnesium 1.9 mg/dL (1.6-2.6); Potassium 3.4 mmol/L (3.5-5.1); Protein, Total 6.5 g/dL (6.0-8.3); Sodium 136 mmol/L (136-145)
[2018-08-24 05:29] LABS: Band 1 % (5-11); Hemoglobin 11.6 g/dL (14.0-18.0); Lymphocytes 22 % (21-51); MDiff Complete? YES; Mean Corpuscular HGB CONC 32.6 g/dL (32.0-36.0); Mean Corpuscular Hemoglobin 25.1 pg (27.0-31.0); Mean Corpuscular Volume 76.9 fL (78.0-98.0); Mean Platelet Volume 10.4 fL (7.4-10.4); Monocytes 10 % (0-10); Neutrophil 67 % (42-75); Platelet Count 182 thou/uL (130-400); RBC Distribution Width 15.3 % (11.5-14.5); Red Blood Cell (RBC) Count 4.64 mill/uL (4.70-6.10); Target Cells SLIGHT = 2-5 cells (100X) (0-1/hpf); White Blood Cell (WBC) Count 11.4 thou/uL (4.8-10.8)
[2018-08-24 06:15] LABS: Bilirubin, Direct 13.2 mg/dL (0.1-0.3)
--- NOTE | 2018-08-24 08:20 | PRG ---
DATE OF SERVICE: 08/23/2018 SUBJECTIVE: Mr. Albert feels well. His temperature is 97, pulse 65, and blood pressure 135/78. States he is voiding, he is eating, and feels much better. His does note his eyes appear jaundiced especially when the sun comes through the windows in the afternoon. Abdomen is noted for good site of drainage. No evidence of leaks. LABORATORY DATA: White count 12.5, hemoglobin 12.7, MCV 76, and platelet count 186. Chemistries; bilirubins 17.2 up from 16.5, it was 15.3 on admission. AST and ALT are a little lower than yesterday, but higher than admission at 164 and 264. Alkaline phosphatase is 303. A hepatobiliary scan was performed on 08/23/2018. Today, there is proper uptake radiotracer liver without activity seen within the bile ducts or small bowel. This could be the result of hepatic dysfunction, biliary obstruction, and very dilated biliary tree. ASSESSMENT: 1. Status post laparoscopic cholecystectomy for acute on chronic cholecystitis. The surgery was very difficult secondary to body habitus. 2. The patient had very typical abdominal pain and biliary colic symptoms prior to admission. On admission, he had elevated bilirubin. The imaging study showed dilated bile ducts, but these were very limited studies and we could not get CAT scan or cross-sectional imaging or magnetic resonance cholangiopancreatography because of his body habitus and his weight not fitting in the machines here. An endoscopic retrograde cholangiopancreatography was performed, which revealed dilated ducts in the liver and in the common hepatic and common bile duct, but no overt obstruction was seen. Stent was placed with good drainage of contrast, but never any drainage of bile. At this point in time, I am concerned that our limitations and imaging are related to body habitus. It left me unsure of whether or not we are dealing with some ongoing obstruction or whether or not this maybe a primary hepatic dysfunction. PLAN: We will review all films with radiologist tomorrow. We will check labs tomorrow. We will continue antibiotics. I think if his numbers continue to accelerate, our options are to try and transfer to a facility, where there is opportunity for imaging or repeating his endoscopic retrograde cholangiopancreatography. I am not sure if repeating his ERCP will be helpful if the stent has migrated out or seems to be malpositioned in some way, but in terms of getting better imaging, I am not sure it is going to happen in light of the body habitus and difficulty with previous endoscopic retrograde cholangiopancreatography with the C-arm in the operating room. We will follow along with you. These issues were discussed with the patient and his . Job ID: [id number]
--- NOTE | 2018-08-24 13:39 | PRG ---
DATE OF SERVICE: 08/24/2018 SUBJECTIVE: Mr. Alfonso Albert is a 47-year-old male, who is postop day 3, status post laparoscopic cholecystectomy. Postoperatively, the patient has done well. He is mobilizing. His pain is controlled and he is tolerating a diet. However, his total bilirubin continues to elevate. There was some persistent drainage post removal of his AGUS drain as well. Upon our evaluation this morning, the patient reports that Dr. Faulkner is planning for another ERCP later today. The patient is currently n.p.o. He appears to be in good spirits and vocalized no complaint to us. OBJECTIVE: VITAL SIGNS: Temperature 97, pulse 67, respirations 20, O2 saturation 96% on room air, and blood pressure 138/89. GENERAL: Sitting in chair, out of bed. PULMONARY: Normal work of breathing. Symmetric rise. CARDIOVASCULAR: Regular rate and rhythm. GI: Abdomen is large, obtund. Surgical sites are clean, dry, and intact. Dressing placed over right lower abdominal port site. He has minimal strikethrough and remains intact. Abdomen is soft, nontender, and nondistended. MUSCULOSKELETAL: Moves all extremities x4. NEURO: No focal deficit is noted. LABORATORY FINDINGS: WBC 11.4, hemoglobin 11.6, hematocrit 35.7, and platelet count 182. Sodium 136, potassium 3.4, chloride 98, carbon dioxide 31, BUN 11, creatinine 0.84, glucose 115, T-bilirubin 17.7, direct bilirubin 13.2, AST 135, ALT 231, alkaline phosphatase 290, and albumin 3.2. ASSESSMENT: 1. Status post laparoscopic cholecystectomy postop day three. 2. Acute cholecystitis with cholelithiasis. 3. Morbid obesity. 4. History of hypertension. 5. Electrolyte abnormality. 6. Persistently elevated LFTs. PLAN: Levaquin restarted by GI. The patient is currently n.p.o. and awaiting ERCP. From a surgical standpoint, the patient is healing well. We will follow the postoperative pain and labs. Appreciate Hospital Medicine and GI input. The patient was seen and evaluated with Dr. Padilla. Plan of care was discussed with the patient at bedside and all questions were answered prior to this dictation. Job ID: [id number]
[2018-08-24] MEDS: Enoxaparin Sodium 40 MG/0.4 ML SYRINGE SC SCH ×2 (14:24→20:19)
[2018-08-24] MEDS: Amlodipine 10 MG TAB PO SCH (14:25)
[2018-08-24] MEDS: Polyethylene Glycol 3350 17 GM Packet PO SCH (14:25)
[2018-08-24] MEDS: Famotidine/PF 20 mg/2ml Vial SLOW IVP SCH ×2 (14:25→20:19)
--- NOTE | 2018-08-24 18:44 | PRG ---
DATE OF SERVICE: 08/24/2018 SUBJECTIVE: Alfonso Albert is feeling well today. He is eating. He has been afebrile. Temperature is 97.7, pulse 69, and blood pressure 146/65. Reviewed his history with him. He did drink heavily back about 10 to 5 years ago. His last drink was about 5 years ago. He denies any drug use. Denies any stimulants to keep him awake at night when he is driving. He denies any family history of liver disease. OBJECTIVE: He is overweight. He is sitting up in the chair. He is talking on the phone. He is without complaints. MEDICATIONS: Reviewed included; 1. Levofloxacin. 2. Ibuprofen p.r.n. 3. Famotidine. 4. Lovenox. 5. Amlodipine. 6. Metoprolol. LABORATORY DATA: White count is down to 11.4, MCV 76, and platelet count is 182. Sodium 136, potassium 3.4, BUN and creatinine 11 and 0.48, total bilirubin 17.7, direct is 13, AST is down to 135, ALT is down to 231, alkaline phosphatase is down to 290, serum protein 6.5, and albumin 3.2. Again, ERCP was reviewed with Radiology. Radiology states the ducts were not really overly dilated. They were estimated about 9 mm. They did not see any filling defects. HIDA scan reviewed with them as well. They agreed there is rapid uptake of bile by the liver, but no output. They note this could be seen in both biliary obstruction cases or hepatic dysfunction cases. ASSESSMENT AND PLAN: Persistently elevated bilirubin. The etiology is unclear with the other liver tests heading downward. I think the cholangitis is unlikely biliary obstruction is less likely, but they have gone up since surgery and he had a difficult surgery. Differential diagnosis would include some type of ongoing biliary obstruction versus synthetic hepatic dysfunction. The patient denies drinking significant alcohol. AST has been higher than ALT, which would go along with go against this as well. We are considering performing the endoscopic retrograde cholangiopancreatography again today with staffing issues to have a proper endoscopic retrograde cholangiopancreatography staff for this complicated case. We will defer till tomorrow if his LFTs not start to coming down. Additionally, we will go ahead and order some workup for possible autoimmune or other underlying liver disease. It is of note that his liver function tests were normal in January of 2018. Job ID: [id number]
[2018-08-25 07:07] LABS: #Basophils 0.1 thou/uL (0.0-0.2); #Eosinphils 0.1 thou/uL (0.0-0.7); #Lymphocytes 2.5 thou/uL (1.20-3.40); #Neutrophils 7.5 thou/uL (1.40-6.50); %Basophils 0.6 % (0.0-1.0); %Eosinophils 1.2 % (0.0-10.0); %Lymphocytes 22.3 % (21.0-51.0); %Monocytes 8.7 % (0.0-10.0); %Neutrophils 67.3 % (42.0-75.0); Mean Corpuscular HGB CONC 31.7 g/dL (32.0-36.0); Mean Corpuscular Hemoglobin 24.3 pg (27.0-31.0); Mean Corpuscular Volume 76.5 fL (78.0-98.0); Mean Platelet Volume 10.1 fL (7.4-10.4); Platelet Count 209 thou/uL (130-400); RBC Distribution Width 15.3 % (11.5-14.5); Red Blood Cell (RBC) Count 4.55 mill/uL (4.70-6.10); White Blood Cell (WBC) Count 11.1 thou/uL (4.8-10.8)
[2018-08-25 07:15] LABS: ALT (SGPT) 199 U/L (8-55); AST (SGOT) 112 U/L (5-34); Albumin 3.1 g/dL (3.5-5.0); Alkaline Phosphatase 291 U/L (40-150); Anion Gap 10 mmol/L (10-20); BUN (Urea Nitrogen) 11 mg/dL (8.9-20.6); Bilirubin, Total 14.6 mg/dL (0.2-1.2); Calc. Creatinine Clearance 415 mL/min (70-130); Calcium 8.6 mg/dL (7.8-10.44); Carbon Dioxide 28 mmol/L (22-29); Chloride 102 mmol/L (98-107); Estimated GFR-MDRD Greater than 90; Globulin 3.2 g/dL (2.4-3.5); Glucose 103 mg/dL (70-105); Iron 80 ug/dL (65-175); Iron Binding Capacity, Total 249 mcg/dL (261-462); Potassium 3.4 mmol/L (3.5-5.1); Protein, Total 6.3 g/dL (6.0-8.3); Sodium 137 mmol/L (136-145)
[2018-08-25] MEDS: Enoxaparin Sodium 40 MG/0.4 ML SYRINGE SC SCH ×2 (09:44→20:03)
[2018-08-25] MEDS: Polyethylene Glycol 3350 17 GM Packet PO SCH (09:45)
[2018-08-25] MEDS: Famotidine/PF 20 mg/2ml Vial SLOW IVP SCH (09:45)
[2018-08-25] MEDS: Amlodipine 10 MG TAB PO SCH (09:46)
--- NOTE | 2018-08-25 10:42 | PRG ---
DATE OF SERVICE: 08/25/2018 SUBJECTIVE: Mr. Albert has had an uneventful night. He is feeling well. No fever. He has been drinking some water, but otherwise has been n.p.o. OBJECTIVE: VITAL SIGNS: Temperature is 98.7, pulse 67, blood pressure 119/90. GENERAL: He is overweight. He is sitting up in a chair. LUNGS: Clear. ABDOMEN: Soft and nontender. HEART: Sounds are distant. LABORATORY DATA: White count is 11.1, hemoglobin is 11.0, MCV is 76, platelet count is 209. Sodium 137, potassium 3.4, BUN and creatinine are 11 and 0.7. Iron was 80, TIBC slightly low at 249, ferritin 743. Bilirubin is 14.6, down from 17.7; AST is 112, down from 135; ALT is 189, down from 231; and alkaline phosphatase is 291. Total IgG and IgM are normal. ASSESSMENT: 1. Status post cholecystectomy for acute cholecystitis. Gallbladder showed acute cholecystitis and cholelithiasis. 2. The patient had elevated LFTs before surgery and underwent ERCP for suspected choledocholithiasis. No overt stones were seen, although ERCP was very difficult and the imaging was difficult secondary to body habitus and using the C-arm in the OR. We were planning on going back for a repeat ERCP today to ensure there is no common bile duct injury based on his liver enzymes rising since surgery, but today they finally improved and down to 14.6 bilirubin, and his AST and ALT are dropping as well following the trend over the last 3 days. PLAN: At this time, we will continue antibiotics. Continue to advance diet. Repeat liver tests tomorrow. We are going to place him on a probiotic as well, so we do not induce antibiotic-associated diarrhea. Job ID: [id number]
--- NOTE | 2018-08-25 13:45 | PRG ---
DATE OF SERVICE: 08/25/2018 SUBJECTIVE: Mr. Albert is a 47-year-old morbidly obese man with a BMI of 76.6. The patient is postoperative day #4 status post laparoscopic cholecystectomy. This morning, he denies any abdominal pain. He is tolerating general diet and passing flatus, but has had no bowel movement. OBJECTIVE: VITAL SIGNS: Includes blood pressure 138/76, pulse 63, respiratory rate is 22, temperature is 97.6 degrees Fahrenheit, and oxygen saturation 94% on room air. HEENT: Reveals bilateral scleral icterus. HEART: Reveals regular rate and rhythm. No murmurs or gallops auscultated. LUNGS: Clear to auscultation bilaterally. Breathing, regular and nonlabored. ABDOMEN: Soft and morbidly obese. SKIN: Incision is intact, clean, and dry. NEUROLOGIC: Reveals no focal deficits present. LABORATORY FINDINGS: Today includes a CBC, 11,100 white blood cells and hemoglobin and hematocrit stable at 11.0 and 34.8 respectively. Platelet count is 209,000. Metabolic profile; sodium is 137, potassium is 3.4, chloride is 102, bicarb is 28, BUN is 11, creatinine is 0.79, glucose is 103, total bilirubin is 14.6, down from 17.7 yesterday. AST and ALT resolving at 112 and 199 respectively in contrast to 135 and 231 respectively yesterday. Alkaline phosphatase is stable at 291. IMPRESSION: 1. Postop day #4 status post laparoscopic cholecystectomy. 2. Resolving hyperbilirubinemia. PLAN: Advance diet as tolerated. We will repeat LFTs in the morning to monitor the hyperbilirubinemia, which I suspect is secondary to cholestasis versus obstructive. Job ID: [id number]
[2018-08-25] MEDS: Famotidine 20 MG TAB PO SCH (20:03)
[2018-08-26 04:36] LABS: ALT (SGPT) 175 U/L (8-55); AST (SGOT) 103 U/L (5-34); Alkaline Phosphatase 286 U/L (40-150); Bilirubin, Direct 7.2 mg/dL (0.1-0.3); Bilirubin, Total 9.8 mg/dL (0.2-1.2); Protein, Total 6.3 g/dL (6.0-8.3)
[2018-08-26 08:04] VITALS: BP 138/74; TEMP 96.8
[2018-08-26] MEDS: Polyethylene Glycol 3350 17 GM Packet PO SCH (08:34)
[2018-08-26] MEDS: Famotidine 20 MG TAB PO SCH (08:35)
[2018-08-26] MEDS: Amlodipine 10 MG TAB PO SCH (08:35)
[2018-08-26] MEDS: Enoxaparin Sodium 40 MG/0.4 ML SYRINGE SC SCH (08:35)
[2018-08-26] MEDS ORDERED: Lactinex Tablet PO SCH (09:00)
--- NOTE | 2018-08-26 13:07 | PRG ---
DATE OF SERVICE: 08/26/2018 SUBJECTIVE: Mr. Albert is eating, feeling well. He is up in chair. He has had no fever. He has no abdominal pain. He does complain of some issues with constipation. 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 This has been somewhat chronic. He has had no rectal bleeding. He has no family history of colon disease. He does have some chronic microcytosis, and I have asked about that, he states he has been told ever since he was a kid he has had low iron. He does not recognize the term thalassemia. OBJECTIVE: VITAL SIGNS: Temperature is 98, pulse 62, blood pressure 130/74. GENERAL: He is sitting in bed. He is comfortable. He is in no distress. ABDOMEN: Soft and nontender, but very protuberant. LABORATORY DATA: No CBC today. Yesterday, hemoglobin was 11 with MCV of 76. He has a low MCV dating to 2014 as far back as we have records here available. Iron is 80, TIBC is 249, bilirubin is 9.8, down from 14 yesterday. AST 103, ALT 175, alkaline phosphatase 286, all numbers continue to decrease. ASSESSMENT: 1. Status post cholecystectomy for severe cholecystitis, improving. 2. Status post endoscopic retrograde cholangiopancreatography for suspected choledocholithiasis, although no overt stones were seen. He had a very difficult exam with difficult visualization secondary to body habitus. Procedure was performed with C-arm in the operating room. His LFTs have actually worsened over time after endoscopic retrograde cholangiopancreatography at which time a stent had been placed due to the poor visualization and concern for possible common duct stones or Mirizzi syndrome. Now, his LFTs are rapidly improving over the past several days. 3. Microcytosis without any overt iron deficiency. This is likely related to thalassemia. RECOMMENDATIONS: 1. I think we will go and stop his antibiotics. He can go home. I will see him in the office in a few weeks and recheck liver enzymes. If they continue to decrease, we will plan for an outpatient ERCP in 4 to 6 weeks to remove the stent and reschedule a cholangiogram. 2. With regard to his bowel function, I have recommended MiraLAX twice daily, high-fiber diet, low calorie diet. This may help with his morbid obesity as well. 3. With regard to his microcytosis, it seems that he has normal iron stores. He may actually have a thalassemia. We will order hemoglobin electrophoresis to confirm. Job ID: [id number]
[2018-08-26] MEDS ORDERED: Rosuvastatin 10 MG TAB PO SCH (21:00)
[2018-08-27] MEDS ORDERED: Lisinopril/Hydrochlorothiazide 20/25 mg Tablet PO SCH (09:00)
[2018-08-27] MEDS ORDERED: Amlodipine 10 MG TAB PO SCH (09:00)
[2018-08-27 11:17] LABS: ANA Symphony (Qualitative) Negative (Negative); ANA Symphony (Quantitative) 0.1 Ratio (< 0.7 Negative); EliA Vaculitis New Method **** NEW METHOD ****; Mitochondrial Ab 0.8 U/mL (<4 Negative); dsDNA IgG Antibody Less than 0.5 IU/mL (<10 Negative)
[2018-08-27 15:12] LABS: Smooth Muscle Total ABS 7 Units (0-19)
--- NOTE | 2018-08-27 18:52 | DIS ---
DATE OF ADMISSION: 08/19/2018 DATE OF DISCHARGE: 08/26/2018 This is Amy Mccoy NP dictating a report for Jackson Padilla DO. CONSULTING SURGICAL SERVICES: Dr. Padilla. DISCHARGING PHYSICIAN: Dr. Padilla. PROCEDURES: 1. On 08/19/2018, abdominal ultrasound was limited due to body habitus, gallbladder not visualized, common duct measured 4 mm in diameter. No free fluid seen. 2. On 08/19/2018, abdominal x-ray, unremarkable gas pattern. 3. On 08/20/2018, ERCP x-ray, placement of biliary stent. 4. On 08/20/2018, procedure; ERCP with sphincterotomy and placement of a 7 cm x 11.5-Sudanese plastic stent to biliary obstruction. Postprocedure diagnosis; dilated common bile duct at least 15 mm, dilated intrahepatic biliary tree. There was never drainage of bile seen. 5. On 08/21/2018, laparoscopic cholecystectomy performed for acute cholecystitis with cholelithiasis. 6. On 08/23/2018,a HIDA; no EF; impression, prompt uptake of radiotracer by the liver without activity seen within the bile ducts or small bowel. Differential considerations would include hepatic dysfunction or biliary ductal obstruction. PRIMARY DIAGNOSES: Cholecystitis with cholelithiasis, laparoscopic cholecystectomy, resolving hyperbilirubinemia. DISCHARGE MEDICATIONS: 1. Acetaminophen 650 mg q.6 hours. 2. Norvasc 10 mg p.o. daily. 3. Ibuprofen 800 mg q.8 hours. 4. Lisinopril-hydrochlorothiazide 20 mg/25 mg. 5. Toprol-XL 50 mg p.o. daily. 6. Crestor 10 mg daily. 7. There are no discontinued medications. HISTORY OF PRESENT ILLNESS AND HOSPITAL COURSE: This is a 47-year-old gentleman with a history of morbid obesity, hypertension, and dyslipidemia, who presented to the emergency room with complaints of stomach pain. The patient also reported his urine being very yellow. Surgical Service was consulted for elevated liver function tests. Conservative for obstructive process with his right upper quadrant pain. The patient was taken for a laparoscopic cholecystectomy, and the patient's liver function tests continued to decline. The patient tolerated a regular diet. The patient was able to pass flatus and have bowel movements. The patient was also seen by Dr. Faulkner who recommended that the patient could go home, and antibiotics could be stopped. Also recommended an outpatient ERCP in 4 to 6 weeks to remove stent and reschedule a cholangiogram. The patient was evaluated on the day of discharge by Dr. Padilla. The patient was deemed stable for discharge home. The patient's exam was unremarkable, and vital signs were stable. The patient had a normal GI and cardiopulmonary exam. The patient agreed with plan and voiced no concerns. DISPOSITION: Stable. DISCHARGE INSTRUCTIONS: 1. Location: Home. 2. Diet: Regular diet. 3. Activity: No heavy lifting for greater than 20 pounds for 2 weeks. 4. Followup: a. Follow up with Dr. Faulkner in 2 to 3 weeks for repeat ERCP. b. Follow up with Dr. Tran, primary care physician, as needed. c. Follow up with Dr. Padilla on September 04, 2018 at 2 p.m. with repeat liver function tests. Job ID: [id number]
== END 2018-08-26 14:02 | disposition home or self-care (01) | DRG 418 ==
LOC: ERS 17:46 → SURG A 20:45
PROVIDERS: ADMIT Family Medicine; ATTEND Family Medicine
PROC: BF131ZZ Fluoroscopy of Gallbladder and Bile Ducts using Low Osmolar Contrast (ICD-10-PCS; principal; 2018-08-21)
PROC: 0FT44ZZ Resection of Gallbladder, Percutaneous Endoscopic Approach (ICD-10-PCS; 2018-08-21)
PROC: 0F798DZ Dilation of Common Bile Duct with Intraluminal Device, Via Natural or Artificial Opening Endoscopic (ICD-10-PCS; 2018-08-21)
DX: K80.00 Calculus of gallbladder with acute cholecystitis without obstruction (principal); E87.1 Hypo-osmolality and hyponatremia; E66.01 Morbid (severe) obesity due to excess calories; I10 Essential (primary) hypertension; E78.5 Hyperlipidemia, unspecified; F17.210 Nicotine dependence, cigarettes, uncomplicated; E87.6 Hypokalemia; D72.829 Elevated white blood cell count, unspecified; I45.81 Long QT syndrome; K83.8 Other specified diseases of biliary tract; D56.9 Thalassemia, unspecified; E80.6 Other disorders of bilirubin metabolism; Z68.45 Body mass index [BMI] 70 or greater, adult; Z79.899 Other long term (current) drug therapy
CPT/HCPCS: 36415; 74018; 74330; 76705; 78226; 80048; 80053; 80074; 80076; 82103; 82104; 82247; 82248; 82728; 83021; 83516; 83540; 83550; 83690; 83735; 84100; 85007; 85025; 85027; 85610; 86038; 86225; 86704; 86705; 86709; 86780; 86803; 87340; 87389; 88304; 93005; A9537; J0690; J1100; J1610; J1650; J1885; J1956; J2001; J2370; J2405; J2704; J3010; J3480; J3490; Q9961; S0028

== ENCOUNTER 2018-09-28 07:30 | Day surgery (SDC) | payer OTHER ==
[2018-09-27 09:54] VITALS: BMI 72.3
[2018-09-28] MEDS ORDERED: Fentanyl 100 MCG/2 ML VIAL ONE (07:40)
[2018-09-28] MEDS ORDERED: Propofol 1,000 MG/100 ML VIAL IV ONE (07:41)
[2018-09-28] MEDS ORDERED: Levofloxacin 500 mg/D5W 100 ml Premix Bag ONE (08:22)
[2018-09-28] MEDS ORDERED: Iothalamate Meglumine 60% 50 ML VIAL FS ONE (09:35)
[2018-09-28] MEDS ORDERED: PROPOFOL 200 MG/20 ML VIAL ONE (14:07)
[2018-09-28] MEDS ORDERED: Glycopyrrolate 0.2 MG/ML 5 ML SYRINGE ONE (14:07)
[2018-09-28] MEDS ORDERED: Succinylcholine Chloride 20 MG/ML 10 ml SYRINGE FS ONE (14:07)
[2018-09-28] MEDS ORDERED: Lidocaine 1% PF 5 ML VIAL ONE (14:07)
[2018-09-28] MEDS ORDERED: Rocuronium Bromide 10 MG/ML (10ML VIAL) ONE (14:07)
--- NOTE | 2018-09-28 14:12 | OP ---
DATE OF PROCEDURE: 09/28/2018 PREOPERATIVE DIAGNOSES: 1. Followup endoscopic retrograde cholangiopancreatography for stent removal. 2. Liver function tests checked last week at [facility] were normal. 3. Morbid obesity over 500 pounds. POSTOPERATIVE DIAGNOSES: 1. The stent was noted to be in the common bile duct and was able to be removed. 2. Attempts at cholangiogram were unsuccessful get into the cystic duct stump, which was clear. Due to positioning on the patient's back due to his morbid obesity, we could not get in position to cannulate the common bile duct, although the clear bile was noted to be draining. ANESTHESIA: General endotracheal anesthesia. RECOMMENDATIONS: Follow up for liver function tests in 3 weeks. DESCRIPTION OF PROCEDURE: After the patient was informed of the risks, benefits, and possible complications of ERCP including perforation, reaction to medication, aspiration as well as risk of morbid obesity, increased risk of anesthesia, increased risk of perforation or complications related to the procedure. Informed consent was obtained. The patient was brought to endoscopy suite, where he was intubated by Anesthesia. Due to his size over 500 pounds, we were not able to roll him onto his stomach for concern of musculoskeletal trauma or inability to oxygenate the patient. Therefore, the ERCP was performed with the patient in a supine position. The endoscope was then advanced to esophagus, stomach, and into the second and third portions of the duodenum, where the ampulla was brought into view. The stent was noted be emanating from it. It was grasped with a rat-tooth forceps and removed. Clear bile was noted to be draining from the bile duct. Attempts to cannulate the bile duct were successful with a balloon catheter. However, we were only able to opacify the long remnant cystic duct stump and not the common bile duct. We changed from a balloon catheter to a sphincterotome with a bilirubin mechanism, but still could not get into the common bile duct. The feeling was it was due to positioning, but the anatomy being a little bit different with the patient supine versus prone. With multiple attempts and inability to do this, cholangiograms were performed to the cystic duct stump and no stones were noted. The bile was noted to be coming from the common bile duct with no issue. The scope was removed. The patient tolerated procedure well. There were no complications. Due to the fact, we were not able to opacify the intrahepatic ducts and the common bile duct, our recommendation would be to have repeat LFTs in about 3 weeks. If they start going back up, then we need to get him to a tertiary care facility for further evaluation with choledochoscopy and other measures to be available. Job ID: [id number]
== END 2018-09-28 12:42 | disposition home or self-care (01) ==
LOC: SDC 07:30
PROVIDERS: ATTEND Internal Medicine Gastroenterology
PROC: 0FPD8DZ Removal of Intraluminal Device from Pancreatic Duct, Via Natural or Artificial Opening Endoscopic (ICD-10-PCS; principal; 2018-09-28)
DX: Z46.59 Encounter for fitting and adjustment of other gastrointestinal appliance and device (principal); R94.5 Abnormal results of liver function studies; E78.00 Pure hypercholesterolemia, unspecified; F17.210 Nicotine dependence, cigarettes, uncomplicated; D50.9 Iron deficiency anemia, unspecified; E66.01 Morbid (severe) obesity due to excess calories; Z68.45 Body mass index [BMI] 70 or greater, adult; Z79.899 Other long term (current) drug therapy
CPT/HCPCS: 74330; J1956; J2001; J2704; J3010

== ENCOUNTER 2018-09-28 21:37 | Inpatient (IN) | payer SELFPAY ==
[2018-09-28] MEDS ORDERED: Morphine 4 MG/ML VIAL ONE (22:06)
--- NOTE | 2018-09-28 22:18 | RAD ---
Chest one view HISTORY: Dyspnea. COMPARISON: None available. FINDINGS: Cardiac silhouette is magnified by projection. Pulmonary vasculature upper limits of normal and accentuated by shallow inspiration. Mediastinum is midline. No lobar consolidation or evidence of pneumothorax. ekg monitor tech leads overlie the chest. IMPRESSION: Borderline pulmonary vascular congestion.
[2018-09-28 22:23] LABS: Mean Corpuscular HGB CONC 32.3 g/dL (32.0-36.0); Mean Corpuscular Hemoglobin 25.2 pg (27.0-31.0); Mean Corpuscular Volume 77.8 fL (78.0-98.0); Mean Platelet Volume 11.1 fL (7.4-10.4); Platelet Count 171 thou/uL (130-400); RBC Distribution Width 16.3 % (11.5-14.5); Red Blood Cell (RBC) Count 5.17 mill/uL (4.70-6.10); White Blood Cell (WBC) Count 11.6 thou/uL (4.8-10.8)
[2018-09-28 22:40] LABS: ALT (SGPT) 157 U/L (8-55); AST (SGOT) 186 U/L (5-34); Albumin 3.7 g/dL (3.5-5.0); Alkaline Phosphatase 256 U/L (40-150); Anion Gap 15 mmol/L (10-20); BUN (Urea Nitrogen) 9 mg/dL (8.9-20.6); Bilirubin, Total 3.5 mg/dL (0.2-1.2); CK (CPK) 82 U/L (30-200); Calc. Creatinine Clearance 0 mL/min (70-130); Calcium 9.4 mg/dL (7.8-10.44); Carbon Dioxide 25 mmol/L (22-29); Chloride 105 mmol/L (98-107); Estimated GFR-MDRD Greater than 90; Globulin 4.4 g/dL (2.4-3.5); Glucose 112 mg/dL (70-105); Lipase 5 U/L (8-78); Potassium 3.6 mmol/L (3.5-5.1); Protein, Total 8.1 g/dL (6.0-8.3); Sodium 141 mmol/L (136-145)
[2018-09-28 22:42] LABS: Band 2 % (5-11); Lymphocytes 4 % (21-51); MDiff Complete? YES; Monocytes 2 % (0-10); Neutrophil 92 % (42-75); Platelet Morphology Comment Appears Adequate; RBC Morphology Normal
[2018-09-28] MEDS ORDERED: Acetaminophen 500 MG TAB ONE (22:46)
[2018-09-28] MEDS ORDERED: Piperacillin/Tazobactam 4.5 GM VIAL ONE (23:22)
[2018-09-29 01:07] VITALS: BMI 72.3
[2018-09-29] MEDS ORDERED: Ondansetron ODT 4 MG TAB SL PRN (01:08)
[2018-09-29] MEDS ORDERED: Ondansetron PF 4 MG/2 ML Vial IVP PRN (01:08)
[2018-09-29] MEDS ORDERED: Morphine 4 MG/ML VIAL SLOW IVP PRN (01:08)
[2018-09-29 01:17] LABS: Bacteria/HPF None Seen HPF (None Seen); Bilirubin 1+ (Negative); Blood, Urine 1+ (Negative); Clarity Clear (Clear); Glucose, Urine (Dipstick) Normal (Negative); Leukocyte Negative Leu/uL (Negative); Nitrite Negative (Negative); Protein, Urine (Dipstick) Negative (Neg-Trace); Squamous Epithelial 0-3 HPF (0-3); Urobilinogen 6 mg/dL (Less than 2); WBC/HPF 0-3 HPF (0-3)
[2018-09-29] MEDS: Sodium Chloride 0.9% 1,000 ML IV SCH ×3 (01:19→16:06)
[2018-09-29 02:08] LABS: Lactic Acid 1.3 mmol/L (0.5-2.2)
[2018-09-29] MEDS ORDERED: Piperacillin/Tazobactam 4.5 GM in Sodium Chloride 0.9% 100 ML IVPB SCH (08:00)
[2018-09-29] MEDS: Aspirin 325 MG TAB PO SCH (08:30)
[2018-09-29] MEDS: Amlodipine 10 MG TAB PO SCH (08:30)
[2018-09-29] MEDS: Famotidine 20 MG TAB PO SCH ×2 (08:30→20:11)
[2018-09-29 10:09] LABS: ALT (SGPT) 142 U/L (8-55); AST (SGOT) 103 U/L (5-34); Albumin 3.4 g/dL (3.5-5.0); Alkaline Phosphatase 222 U/L (40-150); Anion Gap 10 mmol/L (10-20); BUN (Urea Nitrogen) 8 mg/dL (8.9-20.6); Bilirubin, Total 4.7 mg/dL (0.2-1.2); Calc. Creatinine Clearance 453 mL/min (70-130); Calcium 8.8 mg/dL (7.8-10.44); Carbon Dioxide 26 mmol/L (22-29); Chloride 105 mmol/L (98-107); Estimated GFR-MDRD Greater than 90; Globulin 3.7 g/dL (2.4-3.5); Glucose 114 mg/dL (70-105); Lipase Less than 4 U/L (8-78); Potassium 3.3 mmol/L (3.5-5.1); Protein, Total 7.1 g/dL (6.0-8.3); Sodium 138 mmol/L (136-145)
[2018-09-29 12:14] LABS: Hemoglobin 12.3 g/dL (14.0-18.0); Mean Corpuscular HGB CONC 32.4 g/dL (32.0-36.0); Mean Corpuscular Hemoglobin 25.1 pg (27.0-31.0); Mean Corpuscular Volume 77.4 fL (78.0-98.0); Mean Platelet Volume 10.1 fL (7.4-10.4); Platelet Count 145 thou/uL (130-400); RBC Distribution Width 15.8 % (11.5-14.5); Red Blood Cell (RBC) Count 4.89 mill/uL (4.70-6.10); White Blood Cell (WBC) Count 15.5 thou/uL (4.8-10.8)
[2018-09-29 12:18] LABS: Band 4 % (5-11); Hypochromia SLIGHT = 6-15 cells (100X) (0-5/hpf); Lymphocytes 4 % (21-51); MDiff Complete? YES; Monocytes 4 % (0-10); Neutrophil 87 % (42-75); Platelet Morphology Comment Appears Adequate; Reactive Lymphocytes 1 % (0-10)
[2018-09-29] MEDS ORDERED: Lisinopril/Hydrochlorothiazide 20 mg/12.5 mg Tablet PO SCH (14:00)
[2018-09-29] MEDS: Piperacillin/Tazobactam 4.5 GM in Sodium Chloride 0.9% 100 ML IVPB SCH ×2 (14:12→20:15)
--- NOTE | 2018-09-29 16:02 | HP ---
CHIEF COMPLAINT: For fever, nausea, vomiting, and trouble breathing. HISTORY OF PRESENT ILLNESS: Mr. Albert is a 47-year-old Afro-[place] male with past medical history of hypertension and morbid obesity and elevated LFTs, brought in by the EMS because the patient had a procedure done yesterday by Dr. Faulkner. He had stent removed from the common bile duct. After the procedure, the patient went home. Then, a few hours later, he started having fever, claims he had a fever of 100.1, some nausea, vomiting, and could not breathe. The patient's called EMS because he is not breathing well and with some abdominal discomfort as well. In the ER, the patient was found to have markedly elevated blood pressure with systolic blood pressure of 237/115 and found to have a temperature of 103. The patient received Zosyn, also diltiazem IV and given fluids and admitted for further evaluation and management. Currently, the patient does not have any fever. No abdominal pain, nausea, or vomiting, but he does have elevated blood pressure. PAST MEDICAL HISTORY: 1. Hypertension. 2. Morbid obesity. 3. History of gallstones, status post cholecystectomy. 4. History of elevated LFTs. 5. History of hyperlipidemia. PAST SURGICAL HISTORY: Status post cholecystectomy recently last month. FAMILY HISTORY: Nothing contributory. SOCIAL HISTORY: The patient lives with family. No history of smoking. No history of alcohol. REVIEW OF SYSTEMS: Unremarkable except for the fever and trouble breathing. PHYSICAL EXAMINATION: GENERAL: The patient is alert, awake, and oriented x3. VITAL SIGNS: Temperature 103, pulse 90, respirations 20, and blood pressure 170/100. HEENT: Head is normocephalic and atraumatic. Pupils are equal and reactive. Nasopharynx is pale and dry. Hard and soft palate. No lesions. SKIN: Turgor decreased. NECK: Supple. No JVD. LUNGS: Bilateral air entry with no rales and no rhonchi. HEART: S1 and S2. Regular. ABDOMEN: Morbidly obese. No tenderness. No guarding. No rigidity. Bowel sounds present. RECTAL: Deferred. CENTRAL NERVOUS SYSTEM: No focal deficits. LABORATORY DATA: CBC shows WBC of 11.6, hemoglobin 13, hematocrit 40, and platelets 171. Metabolic panel; sodium 140, potassium 3.6, chloride 105, CO2 of 25, blood urea nitrogen 9, creatinine 0.8, and glucose 112. LFTs; AST 186, total bilirubin 3.5, ALT 157, alkaline phosphatase 256, and lipase is 5. Urinalysis negative. Chest x-ray negative. EKG showed normal sinus rhythm, no acute ST-T changes seen. ASSESSMENT: 1. Fever and leukocytosis, rule out sepsis. 2. Hypertensive urgency. 3. Elevated LFTs. 4. Cholelithiasis, status post cholecystectomy. 5. Morbid obesity. 6. History of shortness of breath. 7. Abdominal discomfort. PLAN: 1. Vital signs q.4 hours. 2. Activity as tolerated. 3. Allergies, NKDA. 4. Hep-Lock. 5. Diet, clear liquids. 6. Zosyn 4.5 g IV piggyback q.6. 7. Continue home medications. 8. I added lisinopril. 9. Consult Dr. Ibarra. 10. Consult GI. Job ID: [id number]
--- NOTE | 2018-09-29 19:16 | CON ---
DATE OF CONSULTATION: REASON FOR CONSULT: The patient returned to the hospital last night after ERCP yesterday and removal of common bile duct stent. HISTORY OF PRESENT ILLNESS: Mr. Albert is a 47-year-old gentleman who is morbidly obese over 500 pounds, who was in the hospital in August with cholecystitis and abnormal liver enzymes. The patient underwent an ERCP first secondary to dilated common bile duct at 15 mm in ultrasound with dilated intrahepatic biliary tree. Because of the size, there was very poor visualization of the biliary tree. There was some concern of possible Mirizzi syndrome. Due to his size, he was not a candidate for MRCP or CT. He could not fit in our equipment. The day following his ERCP, he underwent a laparoscopic cholecystectomy. Dr. Padilla removed the gallbladder, which is contracted with multiple adhesions. He had significant bleeding during that procedure. The cystic duct stump was closed with Endoloop at that time. Postoperatively, the patient's bilirubin increased as high as 17, it then began to come down and we discharged him home with the stent in place. On 08/26, his bilirubin was 9.8. Last week, his liver function tests were normal. As there were no signs of cystic duct stump leak and a balloon had been pulled through the duct many times with no overt stones seen, the decision was made to go ahead and see if we could remove his stent. This was done yesterday. The procedure was eventful for the fact that we could not get him on his stomach for regular ERCP positioning due to his body habitus in the equipment available and his respiratory status, even intubated. Therefore, the ERCP was performed on his back. We were able to remove the stent, I was able to shoot cholangiograms. We were only able to access the cystic duct stump and not the intrahepatic ductal system. The patient went home, after being watched for 3 hours and was feeling fine. Apparently, he had a [employer] Frappuccino and then a [employer] fish sandwich and then became ill and was vomiting at home. His notes that then he became somewhat short of breath and felt he could not take a deep breath and he began to have fever 99, then a 100, and then, apparently up to 103 in the emergency room. They called me before that and I instructed from the emergency room and he was brought in by ambulance. Here, he had a chest x-ray that showed borderline pulmonary vascular congestion. Echocardiogram has been done, which showed normal EF, normal right and left ventricular function, although the left atrium is a little bit dilated. His labs are notable for a bilirubin of 3.5, AST and ALT of 185 and 157, alkaline phosphatase 257, lipase of 5. White count 11.6, hemoglobin 13, platelet count 171, 92% segs. The emergency room asked him to go get some blood cultures and start him on antibiotics and to get him admitted. His blood culture did return some gram-negative rods. Presently, he is feeling better. T-max in the ER was 103, temperature since admission has been 99, presently 98.4. His white count is 15.5 with a hemoglobin of 12.3, and platelet count is 145. His bilirubin this morning , which is a little bit higher. His AST and ALT are little bit lower at 103 and 142 with alkaline phosphatase 222, albumin 3.4, protein 7.1. Lipase was less than 4. PAST MEDICAL HISTORY: Status post laparoscopic cholecystectomy for chronic cholecystitis, hypertension, hyperlipidemia, morbid obesity, previous ERCP with stent placement about a month ago and then stent removal yesterday. MEDICATIONS: 1. Metoprolol. 2. Amlodipine. 3. Crestor. 4. Lisinopril/hydrochlorothiazide. Present medications; 1. Amlodipine. 2. Aspirin. 3. Famotidine. 4. Lisinopril. 5. Metoprolol. 6. Zosyn. 7. He is on clear liquid diet. SOCIAL HISTORY: He smokes one pack per day. Denies alcohol. 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 FAMILY HISTORY: Coronary artery disease in multiple family relatives. REVIEW OF SYSTEMS: Negative for dyspnea, leg pain, chest pain, or abdominal pain at this time. PHYSICAL EXAMINATION: VITAL SIGNS: Temperature 98, pulse 72, blood pressure 167/96, O2 saturation 94%. GENERAL: He is morbidly obese. He is sitting up in a chair. LUNGS: Clear. I cannot really auscultate the base as well. HEART: Has regular rate and rhythm. ABDOMEN: Protuberant and morbidly obese with large pannus. I have not palpated any organs. There is no tenderness to deep palpation. Bowel sounds are distant. EXTREMITIES: Reveal brawny lymphedema with no cords palpated and no overt tenderness palpated. LABORATORY DATA: Per HPI. ASSESSMENT: 1. Concern for transient bacteremia related to his endoscopic retrograde cholangiopancreatography yesterday with increased liver function tests. He may have some low-grade cholangitis. It is unclear if he has a stricture in his bile duct or retained stones or what process that is going on, we cannot visualize the area with his ERCPs. In fact, yesterday, we were not able to get into his common bile duct because of the difficulty in his positioning and the fact, we had to do his ERCP on his back. He definitely could have retained stones. He could have a stricture in his bile duct or even malignancy there. I do not think that stricture related to the process at the time he had surgery, but he was having issues with elevated bilirubin before his surgery. 2. Morbid obesity. 3. Hypertension. 4. Bacteremia, gram negative. RECOMMENDATIONS: 1. Continue Zosyn. 2. He does not appear to be septic as he does not seem to have ascending cholangitis at this point in time. If he has any decompensation, we will need to bring him back for emergent ERCP. He and his understands the extreme risk of this for him as even placing him on the stomach intubated, it causes quite a bit of respiratory difficulty for him. If he continues to improve with antibiotics and his all liver enzymes began to come down tomorrow, I would go and just treat him empirically, and then, we would watch him; however, if he does not improve or if he worsens, we have to embark on the ERCP to attempt a replacement of a common bile duct stent. The next step would be transferring out to a tertiary center that can handle his weight as we have no imaging here that can image him including MRI or a CAT scan. Even other facilities do not, there maybe other facilities would have an ability to perform choledochoscopy and really see what is going on his bile duct as with the fluoroscopy we have available, in this large size, we cannot really get a cholangiogram that can give us any meaningful landmarks or findings. I will follow along closely with you. Repeat all labs in the morning. If he begins to develop any signs of sepsis, we will bring him for emergent ERCP and repeat stent placement tonight. Otherwise, we will re-evaluate labs in the morning as he seems to be improving with IV antibiotics. Job ID: [id number]
[2018-09-29] MEDS: Enoxaparin Sodium 40 MG/0.4 ML SYRINGE SC SCH (20:13)
[2018-09-30] MEDS: Sodium Chloride 0.9% 1,000 ML IV SCH ×2 (01:36→18:18)
[2018-09-30] MEDS: Piperacillin/Tazobactam 4.5 GM in Sodium Chloride 0.9% 100 ML IVPB SCH ×3 (01:37→13:20)
[2018-09-30 05:30] LABS: #Eosinphils 0.1 thou/uL (0.0-0.7); #Lymphocytes 1.3 thou/uL (1.20-3.40); #Monocytes 0.6 thou/uL (0.11-0.59); %Basophils 0.1 % (0.0-1.0); %Eosinophils 0.8 % (0.0-10.0); %Lymphocytes 12.8 % (21.0-51.0); %Monocytes 6.1 % (0.0-10.0); %Neutrophils 80.1 % (42.0-75.0); Hemoglobin 11.9 g/dL (14.0-18.0); Mean Corpuscular Hemoglobin 24.9 pg (27.0-31.0); Mean Corpuscular Volume 77.7 fL (78.0-98.0); Mean Platelet Volume 11.2 fL (7.4-10.4); Platelet Count 126 thou/uL (130-400); RBC Distribution Width 15.8 % (11.5-14.5); Red Blood Cell (RBC) Count 4.78 mill/uL (4.70-6.10)
[2018-09-30 05:40] LABS: INR-International Normal Ratio 1.5; Prothrombin Time 17.7 SEC (12.0-14.7)
[2018-09-30 05:48] LABS: Anion Gap 12 mmol/L (10-20); BUN (Urea Nitrogen) 9 mg/dL (8.9-20.6); Calc. Creatinine Clearance 435 mL/min (70-130); Calcium 8.9 mg/dL (7.8-10.44); Carbon Dioxide 24 mmol/L (22-29); Chloride 104 mmol/L (98-107); Estimated GFR-MDRD Greater than 90; Glucose 98 mg/dL (70-105); Potassium 3.1 mmol/L (3.5-5.1); Sodium 137 mmol/L (136-145)
[2018-09-30 05:49] LABS: ALT (SGPT) 101 U/L (8-55); AST (SGOT) 53 U/L (5-34); Albumin 3.1 g/dL (3.5-5.0); Alkaline Phosphatase 192 U/L (40-150); Bilirubin, Direct 3.6 mg/dL (0.1-0.3); Bilirubin, Total 4.9 mg/dL (0.2-1.2); Protein, Total 6.8 g/dL (6.0-8.3)
[2018-09-30] MEDS: Famotidine 20 MG TAB PO SCH ×2 (08:46→21:12)
[2018-09-30] MEDS: Aspirin 325 MG TAB PO SCH (08:46)
[2018-09-30] MEDS: Amlodipine 10 MG TAB PO SCH (08:46)
[2018-09-30] MEDS: Lisinopril/Hydrochlorothiazide 20 mg/12.5 mg Tablet PO SCH (08:47)
[2018-09-30] MEDS ORDERED: Enoxaparin Sodium 40 MG/0.4 ML SYRINGE SC SCH (09:00)
--- NOTE | 2018-09-30 17:40 | PRG ---
DATE OF SERVICE: 09/30/2018 SUBJECTIVE: Mr. Albert states he feels about the same as yesterday. OBJECTIVE: VITAL SIGNS: T-max 100.5, pulse 80, blood pressure 198/94. HEENT: Mildly icteric. ABDOMEN: Soft. Nontender right upper quadrant. No rebound. No guarding. He has large pannus of the abdomen. EXTREMITIES: No clubbing or cyanosis. He has brawny lymphedema in the legs. LABORATORY DATA: White count 10, down from 15 yesterday, hemoglobin 11.9, platelet count 126,000. Chemistries: Sodium 137, potassium 3.1, BUN and creatinine 9 and 0.7, bilirubin 4.9. AST 53, down from 103. ALT 101, down from 142. Alkaline phosphatase 192, down from 222. ASSESSMENT AND PLAN: Gram-negative bacteremia, likely mild cholangitis, post ERCP with a bump in liver enzymes. At this time, he seems to be improving. His LFTs seem to be coming down, except for the bilirubin, which seems to be plateauing. His blood cultures did show gram-negative bacteremia. Culture and susceptibilities are pending. One is Klebsiella and one is Enterobacter species. There are no signs of ascending cholangitis or sepsis at this point in time. The exact biliary process going on is unclear as documented on previous notes his body habitus and the equipment we have available in this hospital adequately visualized the biliary tree fluoroscopically at ERCP, and he is not known to have MRIs or CTs. As he seems to improve since admission, we will continue with antibiotics. If bilirubin does not start to return to normal, we will need to repeat ERCP for repeat stent placement, and then we will ultimately need referral to outside facility for choledochostomy. We will continue to follow in the hospital presently. Job ID: [id number]
[2018-09-30] MEDS: Meropenem 2 GM, IV Admixture Fee-Chemo 1 UNITS in Sodium Chloride 0.9% 100 ML IVPB SCH (18:19)
[2018-09-30] MEDS: Acetaminophen 325 MG TAB PO PRN (18:19)
[2018-09-30] MEDS: Ursodiol 300 MG CAP PO SCH (18:20)
[2018-09-30] MEDS: Potassium Chloride 20 MEQ TAB PO SCH ×2 (18:20→21:12)
[2018-09-30] MEDS: Enoxaparin Sodium 40 MG/0.4 ML SYRINGE SC SCH (21:12)
[2018-10-01] MEDS ORDERED: hydrALAZINE 20 MG/ML VIAL SLOW IVP PRN (00:08)
--- NOTE | 2018-10-01 00:42 | CON ---
DATE OF CONSULTATION: 09/30/2018 REASON FOR CONSULTATION: Bacteremia. HISTORY OF PRESENT ILLNESS: 47-year-old patient who suffers from morbid obesity and recently had extensive interventions in his biliary tract because of choledocholithiasis with diseased gallbladder. He developed a right upper quadrant abdominal pain in August 19 and had a bilirubin of 14 with moderate elevation of transaminases and alkaline phosphatase. An ultrasound showed dilation of CBD, ERCP was difficult as there was a concern with Mirizzi syndrome. He eventually ended up having a cholecystectomy and then on 08/21/2018, removal of stent, the liver enzymes and bilirubin had improved, after stent removal, he developed fever up to 103 and was readmitted. He is now in the observation area, sitting up by the bedside, oriented, does not appear in distress. No headaches. No visual symptoms, sore throat, odynophagia, dysphagia. Mild dyspnea. No cough. No abdominal pain. He has not had a bowel movement yet. He is voiding without difficulty. No neurological symptoms. PAST MEDICAL HISTORY: Morbid obesity; hypertension; hyperlipidemia; choledocholithiasis and cholelithiasis with obstruction, status post cholecystectomy and ERCP with stent placement, both very difficult procedures, eventual stent removal, and now this development. PAST SURGICAL HISTORY: Cholecystectomy recently. FAMILY HISTORY: Noncontributory. SOCIAL HISTORY: Never smoker. Lives in [place] with family. No alcoholic beverage use. CURRENT MEDICATIONS: 1. Zosyn IV fluids. 2. Pepcid. 3. Lisinopril. 4. Lovenox. 5. Aspirin. 6. Norvasc. PHYSICAL EXAMINATION: VITAL SIGNS: T-max 100.3 to 100.5, blood pressure 190/90, pulse 80, respirations 20, O2 saturation 95%. SKIN: Areas of stasis dermatitis in lower extremities dermatosclerosis. Peripheral IV access and is voiding in the urinal. HEENT: Ocular movements conjugate. Alert and oriented. Oral cavity normal. NECK: Supple. LUNGS: Symmetric, clear breath sounds. HEART: S1, S2. Diminished heart sounds. No S3 or S4. No murmurs. ABDOMEN: Very prominent panniculus, but no inflammatory changes. No tenderness. No bladder distention. EXTREMITIES: Difficult to evaluate lower extremities, but pulses are faintly palpable in dorsalis pedis. Skin is warm. Cap refill is normal. He is able to move extremities on command. He is able to bear weight. His cognitive function is perfectly intact. LABORATORY DATA: White cell count was 11.6 with 92% neutrophils and now is 10.0, hemoglobin 11.9, platelets 126,000. INR 1.5. Sodium 138, creatinine 0.74. The bilirubin had come down from 14.6 down to 3.5, now is at 4.9, a little bit up from previous. AST peaked at 262, went down to 103, and now is at 53. ALT peaked at 300, now is 101. Alkaline phosphatase was at 303 and now is down to 192. His creatinine is normal. Urinalysis fairly unremarkable. Microbiology with 2 different gram-negative rods yet to be identified and susceptibility tested. IMAGING: There is just an echocardiogram which showed EF 55%, otherwise normal structures. Chest x-ray with borderline vascular congestion. There is a hepatobiliary scan from 08/23/2018, with prompt uptake of radiotracer in the liver without activity seen in the bile ducts. ASSESSMENT: 1. Morbid obesity. 2. Choledocholithiasis with obstruction. Other structural abnormalities could not be identified, but are not ruled out in view of the difficulty in performing the biliary tract studies. 3. Cholecystectomy, ERCP with stenting, and then removal of stent. 4. Likely cholangitis with bacteremia. DISCUSSION: We will switch him to meropenem until the final identification and susceptibility of the organisms is identified. Since the organism is Klebsiella/Enterobacter, there is a significant chance for ESBL phenotype like organism, so I think, he should do better with Merrem. The dose will be increased in view of his weight and will as discuss by Dr. Faulkner, the further interventions would be difficult because of his weight, but he will, for now just track his progress of his bilirubin. Liver abscess is risk going forward. Job ID: [id number]
[2018-10-01] MEDS: Meropenem 2 GM, IV Admixture Fee-Chemo 1 UNITS in Sodium Chloride 0.9% 100 ML IVPB SCH ×3 (02:07→17:00)
[2018-10-01 06:05] LABS: #Basophils 0.1 thou/uL (0.0-0.2); #Eosinphils 0.1 thou/uL (0.0-0.7); #Lymphocytes 1.3 thou/uL (1.20-3.40); #Monocytes 0.7 thou/uL (0.11-0.59); #Neutrophils 5.8 thou/uL (1.40-6.50); %Basophils 0.8 % (0.0-1.0); %Eosinophils 1.1 % (0.0-10.0); %Lymphocytes 15.9 % (21.0-51.0); %Monocytes 9.1 % (0.0-10.0); %Neutrophils 73.1 % (42.0-75.0); Hemoglobin 11.8 g/dL (14.0-18.0); Mean Corpuscular HGB CONC 31.3 g/dL (32.0-36.0); Mean Corpuscular Hemoglobin 24.5 pg (27.0-31.0); Mean Corpuscular Volume 78.4 fL (78.0-98.0); Mean Platelet Volume 10.7 fL (7.4-10.4); Platelet Count 130 thou/uL (130-400); RBC Distribution Width 15.6 % (11.5-14.5); Red Blood Cell (RBC) Count 4.83 mill/uL (4.70-6.10)
[2018-10-01 06:30] LABS: ALT (SGPT) 75 U/L (8-55); AST (SGOT) 43 U/L (5-34); Albumin 3.1 g/dL (3.5-5.0); Alkaline Phosphatase 176 U/L (40-150); Anion Gap 13 mmol/L (10-20); BUN (Urea Nitrogen) 6 mg/dL (8.9-20.6); Bilirubin, Direct 2.8 mg/dL (0.1-0.3); Bilirubin, Total 4.1 mg/dL (0.2-1.2); Calc. Creatinine Clearance 485 mL/min (70-130); Carbon Dioxide 23 mmol/L (22-29); Chloride 101 mmol/L (98-107); Estimated GFR-MDRD Greater than 90; Glucose 91 mg/dL (70-105); Potassium 3.2 mmol/L (3.5-5.1); Protein, Total 7.1 g/dL (6.0-8.3); Sodium 134 mmol/L (136-145)
[2018-10-01] MEDS: cloNIDine 0.1 MG TAB PO PRN ×2 (06:31→20:07)
[2018-10-01] MEDS: Famotidine 20 MG TAB PO SCH ×2 (07:43→20:07)
[2018-10-01] MEDS: Lisinopril/Hydrochlorothiazide 20 mg/12.5 mg Tablet PO SCH (07:43)
[2018-10-01] MEDS: Ursodiol 300 MG CAP PO SCH ×3 (07:43→16:30)
[2018-10-01] MEDS: Sodium Chloride 0.9% 1,000 ML IV SCH ×2 (07:43→20:08)
[2018-10-01] MEDS: Amlodipine 10 MG TAB PO SCH (07:43)
[2018-10-01] MEDS: Aspirin 325 MG TAB PO SCH (07:43)
[2018-10-01] MEDS: NIFEdipine XL 60 MG TAB PO SCH (09:15)
--- NOTE | 2018-10-01 13:10 | PRG ---
DATE OF SERVICE: 10/01/2018 SUBJECTIVE: Mr. Albert is feeling better today. OBJECTIVE: VITAL SIGNS: T-max 100.5 at 1500 hours on the , T current 97.9, pulse 81, blood pressure 161/94. Since I last saw him, Dr. Ibarra has seen him and changed antibiotics. GENERAL: He is overweight, morbidly obese. The patient is resting comfortably, sitting up in a chair. LUNGS: Clear. ABDOMEN: Nontender. There is large pannus. EXTREMITIES: He has venous stasis in the legs. LABORATORY DATA: White count is 8, hemoglobin 11.8, and platelet count 130. Sodium 134, potassium 3.2, bilirubin has come down to 4.1 from a high of 4.9, AST is down to 43, ALT is down to 57, alkaline phosphatase is down to 176. His Klebsiella is pansensitive in the blood cultures. Enterobacter pansensitive as well. ASSESSMENT: Transient bacteremia, Klebsiella and Enterobacter likely related to his ERCP and stent removal prior to some low-grade cholangitis. He is improving with antibiotics. Liver function tests are improving. PLAN: Continue antibiotic treatment. If LFTs not returned to normal, he will need a repeat ERCP and attempted referral to outside facility for a choledochoscopy. The patient remained hospitalized for now. Job ID: [id number]
[2018-10-01] MEDS: Potassium Chloride 20 MEQ TAB PO SCH ×2 (17:44→21:03)
[2018-10-01] MEDS: Enoxaparin Sodium 40 MG/0.4 ML SYRINGE SC SCH (20:06)
[2018-10-02] MEDS: Potassium Chloride 20 MEQ TAB PO SCH ×4 (02:15→22:40)
[2018-10-02] MEDS: Meropenem 2 GM, IV Admixture Fee-Chemo 1 UNITS in Sodium Chloride 0.9% 100 ML IVPB SCH ×3 (02:15→16:47)
[2018-10-02] MEDS: Acetaminophen 325 MG TAB PO PRN (02:15)
[2018-10-02] MEDS: Aspirin 325 MG TAB PO SCH (08:27)
[2018-10-02] MEDS: NIFEdipine XL 60 MG TAB PO SCH (08:27)
[2018-10-02] MEDS: Famotidine 20 MG TAB PO SCH ×2 (08:27→20:03)
[2018-10-02] MEDS: Lisinopril/Hydrochlorothiazide 20 mg/12.5 mg Tablet PO SCH (10:47)
[2018-10-02] MEDS: Sodium Chloride 0.9% 1,000 ML IV SCH (10:47)
[2018-10-02] MEDS: Ursodiol 300 MG CAP PO SCH ×3 (10:47→16:42)
[2018-10-02 10:55] LABS: #Eosinphils 0.2 thou/uL (0.0-0.7); #Lymphocytes 1.6 thou/uL (1.20-3.40); #Neutrophils 4.1 thou/uL (1.40-6.50); %Basophils 0.5 % (0.0-1.0); %Eosinophils 2.2 % (0.0-10.0); %Lymphocytes 23.4 % (21.0-51.0); %Monocytes 14.9 % (0.0-10.0); Hemoglobin 12.1 g/dL (14.0-18.0); Mean Corpuscular HGB CONC 31.6 g/dL (32.0-36.0); Mean Corpuscular Hemoglobin 23.9 pg (27.0-31.0); Mean Corpuscular Volume 75.6 fL (78.0-98.0); Mean Platelet Volume 10.2 fL (7.4-10.4); Platelet Count 158 thou/uL (130-400); RBC Distribution Width 15.6 % (11.5-14.5); Red Blood Cell (RBC) Count 5.04 mill/uL (4.70-6.10); White Blood Cell (WBC) Count 6.9 thou/uL (4.8-10.8)
[2018-10-02 11:26] LABS: ALT (SGPT) 63 U/L (8-55); AST (SGOT) 33 U/L (5-34); Albumin 3.2 g/dL (3.5-5.0); Alkaline Phosphatase 160 U/L (40-150); Anion Gap 11 mmol/L (10-20); BUN (Urea Nitrogen) 6 mg/dL (8.9-20.6); Bilirubin, Total 2.3 mg/dL (0.2-1.2); Calc. Creatinine Clearance 523 mL/min (70-130); Calcium 8.8 mg/dL (7.8-10.44); Carbon Dioxide 27 mmol/L (22-29); Chloride 101 mmol/L (98-107); Estimated GFR-MDRD Greater than 90; Glucose 106 mg/dL (70-105); Potassium 3.2 mmol/L (3.5-5.1); Protein, Total 7.2 g/dL (6.0-8.3); Sodium 136 mmol/L (136-145)
--- NOTE | 2018-10-02 19:07 | PRG ---
DATE OF SERVICE: 10/02/2018 SUBJECTIVE: Mr. Albert is feeling better. He is tolerating liquids and diet. He has started regular food this afternoon. OBJECTIVE: VITAL SIGNS: Stable. He has been afebrile for the past 24 hours. Temperature is 98.1, T-max 99.7, pulse 63, blood pressure 113/79. ABDOMEN: Soft and nontender. He is morbidly obese. He has anasarca and large pannus. EXTREMITIES: Venous stasis in his legs. LABORATORY DATA: White count 6.9, hemoglobin 12.1, platelet count 158. Bilirubin 3.3, AST and ALT 33 and 63, alkaline phosphatase is down to 160. ASSESSMENT: Transient cholangitis from removing common bile duct stent. He did develop bacteremia and is on antibiotic and meropenem. RECOMMENDATIONS: Advance through regular diet with carbohydrate restriction. We will repeat LFTs today. We will not repeat CBC at this point in time. Job ID: [id number]
[2018-10-02] MEDS: Enoxaparin Sodium 40 MG/0.4 ML SYRINGE SC SCH (20:03)
[2018-10-03] MEDS ORDERED: Clopidogrel Bisulfate 75 MG TAB ONE (01:04)
[2018-10-03] MEDS: Meropenem 2 GM, IV Admixture Fee-Chemo 1 UNITS in Sodium Chloride 0.9% 100 ML IVPB SCH ×3 (01:26→17:09)
[2018-10-03] MEDS: Sodium Chloride 0.9% 1,000 ML IV SCH ×2 (01:30→13:56)
[2018-10-03 06:16] LABS: ALT (SGPT) 59 U/L (8-55); AST (SGOT) 36 U/L (5-34); Albumin 3.1 g/dL (3.5-5.0); Alkaline Phosphatase 150 U/L (40-150); Bilirubin, Direct 1.3 mg/dL (0.1-0.3); Bilirubin, Total 1.7 mg/dL (0.2-1.2); Protein, Total 7.4 g/dL (6.0-8.3)
[2018-10-03 06:34] LABS: Band 3 % (5-11); Hemoglobin 12.3 g/dL (14.0-18.0); Hypochromia SLIGHT = 6-15 cells (100X) (0-5/hpf); Lymphocytes 22 % (21-51); MDiff Complete? YES; Mean Corpuscular HGB CONC 32.2 g/dL (32.0-36.0); Mean Corpuscular Hemoglobin 24.6 pg (27.0-31.0); Mean Corpuscular Volume 76.4 fL (78.0-98.0); Mean Platelet Volume 10.6 fL (7.4-10.4); Monocytes 5 % (0-10); Neutrophil 70 % (42-75); Platelet Count 164 thou/uL (130-400); Platelet Morphology Comment Appears Adequate; RBC Distribution Width 15.5 % (11.5-14.5); White Blood Cell (WBC) Count 8.7 thou/uL (4.8-10.8)
[2018-10-03] MEDS: Aspirin 325 MG TAB PO SCH (08:15)
[2018-10-03] MEDS: NIFEdipine XL 60 MG TAB PO SCH (08:15)
[2018-10-03] MEDS: Lisinopril/Hydrochlorothiazide 20 mg/12.5 mg Tablet PO SCH (08:16)
[2018-10-03] MEDS: Famotidine 20 MG TAB PO SCH ×2 (08:16→20:37)
[2018-10-03] MEDS: Potassium Chloride 20 MEQ TAB PO SCH ×3 (08:16→21:31)
[2018-10-03] MEDS: Ursodiol 300 MG CAP PO SCH ×3 (08:17→17:08)
[2018-10-03 12:13] LABS: Anion Gap 14 mmol/L (10-20); BUN (Urea Nitrogen) 6 mg/dL (8.9-20.6); Calc. Creatinine Clearance 532 mL/min (70-130); Carbon Dioxide 25 mmol/L (22-29); Chloride 100 mmol/L (98-107); Estimated GFR-MDRD Greater than 90; Glucose 111 mg/dL (70-105); Potassium 3.3 mmol/L (3.5-5.1); Sodium 136 mmol/L (136-145)
[2018-10-03] MEDS ORDERED: Potassium Chloride 20 MEQ in Premix Bag 1 BAG IVPB SCH (12:30)
[2018-10-03] MEDS ORDERED: Polyethylene Glycol 3350 17 GM Packet PO SCH (13:00)
--- NOTE | 2018-10-03 16:58 | PRG ---
DATE OF SERVICE: 10/03/2018 SUBJECTIVE: Mr. Albert sitting by the bedside, appears in no distress, eating. Constipated. No respiratory symptoms. No abdominal pain. Voiding without difficulty. OBJECTIVE: VITAL SIGNS: Temperature max 99.7, BP 130/77. GENERAL: Awake, alert, oriented. LUNGS: Clear. CARDIOVASCULAR: S1 and S2, regular rate. ABDOMEN: Soft, not distended. No Soto catheter. EXTREMITIES: Able to ambulate. LABORATORY DATA: White cell count 8.7, hemoglobin 12.3, creatinine 0.63. Microbiology with Klebsiella and Enterobacter with a very broad susceptibility profile. ASSESSMENT AND DISCUSSION: Morbid obesity, choledocholithiasis with obstruction, possible additional structural abnormalities but imaging studies were difficult because of his body weight status post cholecystectomy, ERCP with stenting and then removal of stent and likely cholangitis. At this point, we will switch him to oral quinolone. Discontinue IV meropenem. Job ID: [id number]
[2018-10-03] MEDS: Enoxaparin Sodium 40 MG/0.4 ML SYRINGE SC SCH (20:37)
[2018-10-03] MEDS: Ciprofloxacin 500 MG TAB PO SCH (20:37)
[2018-10-03 23:05] LABS: Potassium 3.4 mmol/L (3.5-5.1)
[2018-10-04] MEDS ORDERED: Magnesium 2 GM/50 ML 2 GM in Premix Bag 1 BAG IVPB SCH (00:15)
[2018-10-04] MEDS: Potassium Chloride 20 MEQ TAB PO SCH ×3 (00:30→08:29)
[2018-10-04] MEDS: Meropenem 2 GM, IV Admixture Fee-Chemo 1 UNITS in Sodium Chloride 0.9% 100 ML IVPB SCH ×2 (02:04→11:05)
[2018-10-04] MEDS: Ciprofloxacin 500 MG TAB PO SCH (05:04)
[2018-10-04] MEDS: Ursodiol 300 MG CAP PO SCH (08:28)
[2018-10-04] MEDS: Aspirin 325 MG TAB PO SCH (08:28)
[2018-10-04] MEDS: Lisinopril/Hydrochlorothiazide 20 mg/12.5 mg Tablet PO SCH (08:28)
[2018-10-04] MEDS: Famotidine 20 MG TAB PO SCH (08:29)
[2018-10-04] MEDS: NIFEdipine XL 60 MG TAB PO SCH (08:29)
--- NOTE | 2018-10-04 08:42 | PRG ---
DATE OF SERVICE: 10/03/2018 SUBJECTIVE: Mr. Albert feels fine. Dr. Ibarra is changing his antibiotics to p.o. . OBJECTIVE: VITAL SIGNS: Temperature 98.1, T-max 99.7 at 0730 and midnight, pulse 77, blood pressure 130/77. GENERAL: He is resting comfortably and sitting up. He is in no distress. Morbidly obese. LABORATORY DATA: White count 8.7, hemoglobin 12.8, platelet count 164. Bilirubin is at 1.6, AST and ALT are 36 and 59 with alkaline phosphatase of 150. ASSESSMENT: 1. Cholangitis, mild after pulling his biliary stent. Prior to pulling his biliary stent, his LFTs were completely normal in my office via [facility]. 2. Bacteremia from transient cholangitis with Klebsiella and Enterobacter, responding well to antibiotics, pansensitive. Dr. Ibarra has switched him to p.o. . RECOMMENDATIONS: If his LFTs are stable tomorrow, then he can go home with antibiotics, duration as prescribed by Infectious Disease. Job ID: [id number]
[2018-10-04] MEDS ORDERED: Polyethylene Glycol 3350 17 GM Packet PO SCH (09:00)
[2018-10-04 10:05] LABS: ALT (SGPT) 54 U/L (8-55); AST (SGOT) 32 U/L (5-34); Albumin 3.2 g/dL (3.5-5.0); Alkaline Phosphatase 142 U/L (40-150); Anion Gap 11 mmol/L (10-20); BUN (Urea Nitrogen) 11 mg/dL (8.9-20.6); Bilirubin, Total 1.6 mg/dL (0.2-1.2); Calc. Creatinine Clearance 413 mL/min (70-130); Calcium 9.2 mg/dL (7.8-10.44); Carbon Dioxide 30 mmol/L (22-29); Chloride 103 mmol/L (98-107); Estimated GFR-MDRD Greater than 90; Globulin 4.5 g/dL (2.4-3.5); Glucose 105 mg/dL (70-105); Magnesium 2.1 mg/dL (1.6-2.6); Potassium 4.2 mmol/L (3.5-5.1); Protein, Total 7.7 g/dL (6.0-8.3); Sodium 140 mmol/L (136-145)
[2018-10-04 12:32] VITALS: BP 124/73; TEMP 98.2
== END 2018-10-04 12:50 | disposition home or self-care (01) | DRG 445 ==
LOC: ERS 21:37 → OBSVTOIN 09-29 00:50 → 2SW 09-29 00:50 → T4-B 10-01 18:32
PROVIDERS: ADMIT Internal Medicine; ATTEND Internal Medicine
DX: K80.31 Calculus of bile duct with cholangitis, unspecified, with obstruction (principal); Z68.45 Body mass index [BMI] 70 or greater, adult; I10 Essential (primary) hypertension; B96.1 Klebsiella pneumoniae [K. pneumoniae] as the cause of diseases classified elsewhere; B96.89 Other specified bacterial agents as the cause of diseases classified elsewhere; E78.5 Hyperlipidemia, unspecified; F17.200 Nicotine dependence, unspecified, uncomplicated; E66.01 Morbid (severe) obesity due to excess calories; I16.0 Hypertensive urgency; Z90.49 Acquired absence of other specified parts of digestive tract
CPT/HCPCS: 36415; 71045; 80048; 80053; 80076; 81003; 81015; 82550; 83605; 83690; 83735; 83880; 84484; 85025; 85610; 87040; 87077; 87149; 87186; 93005; 93306; 96360; 96361; 96374; 96375; J0360; J1650; J2185; J2270; J2543; J3475; J3480; J3490

== ENCOUNTER 2020-05-16 09:33 | Inpatient (IN) | payer OTHER, SELFPAY ==
[2020-05-16 10:10] LABS: #Eosinphils 0.1 thou/uL (0.0-0.7); #Lymphocytes 2.1 thou/uL (1.20-3.40); #Monocytes 0.9 thou/uL (0.11-0.59); #Neutrophils 6.1 thou/uL (1.40-6.50); %Basophils 0.5 % (0.0-1.0); %Eosinophils 1.5 % (0.0-10.0); %Lymphocytes 22.9 % (21.0-51.0); %Monocytes 9.4 % (0.0-10.0); %Neutrophils 65.7 % (42.0-75.0); Hemoglobin 13.9 g/dL (14.0-18.0); Mean Corpuscular HGB CONC 31.7 g/dL (32.0-36.0); Mean Corpuscular Hemoglobin 24.4 pg (27.0-31.0); Mean Corpuscular Volume 76.8 fL (78.0-98.0); Mean Platelet Volume 10.8 fL (7.4-10.4); Platelet Count 163 thou/uL (130-400); RBC Distribution Width 15.9 % (11.5-14.5); Red Blood Cell (RBC) Count 5.72 mill/uL (4.70-6.10); White Blood Cell (WBC) Count 9.3 thou/uL (4.8-10.8)
[2020-05-16 10:26] LABS: ALT (SGPT) 15 U/L (8-55); AST (SGOT) 15 U/L (5-34); Albumin 3.6 g/dL (3.5-5.0); Alkaline Phosphatase 86 U/L (40-110); Anion Gap 15 mmol/L (10-20); BUN (Urea Nitrogen) 14 mg/dL (8.9-20.6); Bilirubin, Total 0.5 mg/dL (0.2-1.2); Calc. Creatinine Clearance 0 mL/min (70-130); Calcium 8.9 mg/dL (7.8-10.44); Carbon Dioxide 23 mmol/L (22-29); Chloride 107 mmol/L (98-107); Globulin 5.1 g/dL (2.4-3.5); Glucose 106 mg/dL (70-105); Potassium 3.4 mmol/L (3.5-5.1); Protein, Total 8.7 g/dL (6.0-8.3); Sodium 142 mmol/L (136-145)
[2020-05-16] MEDS ORDERED: SODIUM CHLORIDE 0.9% IVPB SCH (10:45)
[2020-05-16] MEDS ORDERED: VANCOMYCIN HCL IVPB SCH (10:45)
[2020-05-16] MEDS ORDERED: Piperacillin/Tazobactam 3.375 GM in Sodium Chloride 0.9% 100 ML IVPB SCH ×2 (10:45→12:15)
[2020-05-16] MEDS ORDERED: Piperacillin/Tazobactam 3.375 GM VIAL ONE (11:01)
[2020-05-16] MEDS ORDERED: Bisacodyl 5 MG TAB PO PRN (12:02)
[2020-05-16] MEDS ORDERED: Acetaminophen 325 MG TAB PO PRN (12:02)
[2020-05-16] MEDS ORDERED: hydrALAZINE 20 MG/ML VIAL SLOW IVP PRN (12:23)
[2020-05-16] MEDS ORDERED: Ondansetron PF 4 MG/2 ML Vial IVP PRN (13:31)
[2020-05-16] MEDS ORDERED: Ondansetron ODT 4 MG TAB PO PRN (13:31)
[2020-05-16 15:47] VITALS: BMI 83.2
[2020-05-16] MEDS ORDERED: Potassium Chloride 20 MEQ TAB PO SCH (16:15)
[2020-05-16] MEDS: Piperacillin/Tazobactam 3.375 GM in Sodium Chloride 0.9% 100 ML IVPB SCH ×2 (16:39→23:37)
[2020-05-16] MEDS: Furosemide 40 MG/4 ML VIAL SLOW IVP SCH (16:39)
[2020-05-16] MEDS: Famotidine 20 MG TAB PO SCH (20:30)
[2020-05-16] MEDS: VANCOMYCIN 2 GRAM/400 ML BAG 2 GM in Premix Bag 1 BAG IVPB SCH (20:30)
[2020-05-16] MEDS ORDERED: Vancomycin 1 GM in Premix Bag 1 BAG IVPB SCH (21:00)
[2020-05-16 21:12] LABS: SARS-CoV-2 PCR by NAA Not Detected (NotDetected)
[2020-05-17] MEDS: VANCOMYCIN 2 GRAM/400 ML BAG 2 GM in Premix Bag 1 BAG IVPB SCH ×3 (04:10→20:00)
[2020-05-17] MEDS: Furosemide 40 MG/4 ML VIAL SLOW IVP SCH ×2 (05:56→16:07)
[2020-05-17] MEDS: Piperacillin/Tazobactam 3.375 GM in Sodium Chloride 0.9% 100 ML IVPB SCH ×4 (05:56→23:31)
[2020-05-17 06:49] LABS: Hemoglobin A1c 5.8 % (4.0-6.0)
[2020-05-17 06:54] LABS: #Eosinphils 0.1 thou/uL (0.0-0.7); #Lymphocytes 1.5 thou/uL (1.20-3.40); #Neutrophils 7.2 thou/uL (1.40-6.50); %Basophils 0.2 % (0.0-1.0); %Eosinophils 1.3 % (0.0-10.0); %Lymphocytes 15.3 % (21.0-51.0); %Monocytes 9.7 % (0.0-10.0); %Neutrophils 73.5 % (42.0-75.0); Hemoglobin 12.3 g/dL (14.0-18.0); Mean Corpuscular HGB CONC 31.7 g/dL (32.0-36.0); Mean Corpuscular Hemoglobin 24.1 pg (27.0-31.0); Mean Platelet Volume 11.1 fL (7.4-10.4); Platelet Count 170 thou/uL (130-400); RBC Distribution Width 15.9 % (11.5-14.5); White Blood Cell (WBC) Count 9.8 thou/uL (4.8-10.8)
[2020-05-17 07:10] LABS: Anion Gap 12 mmol/L (10-20); BUN (Urea Nitrogen) 15 mg/dL (8.9-20.6); CRP (Inflammatory) 5.06 mg/dL (= or < 0.5); Calc. Creatinine Clearance 464 mL/min (70-130); Calcium 8.2 mg/dL (7.8-10.44); Carbon Dioxide 25 mmol/L (22-29); Cardiac Risk 4.1 (Less than 4.5); Chloride 106 mmol/L (98-107); Cholesterol 128 mg/dl (< 200 Desired); Glucose 113 mg/dL (70-105); HDL Cholesterol 31 mg/dL (>60 Neg Risk); LDL Cholesterol, Calculated 86 mg/dL; Magnesium 1.8 mg/dL (1.6-2.6); Potassium 3.7 mmol/L (3.5-5.1); Sodium 139 mmol/L (136-145); Triglycerides 55 mg/dL (Less than 150)
[2020-05-17] MEDS: Famotidine 20 MG TAB PO SCH ×2 (08:22→20:00)
[2020-05-17] MEDS: Enoxaparin Sodium 40 MG/0.4 ML SYRINGE SC SCH (08:22)
[2020-05-17] MEDS: Potassium Chloride 20 MEQ TAB PO SCH (08:22)
[2020-05-17 11:28] LABS: Vancomycin, Trough 18.3 ug/mL
[2020-05-17] MEDS: HYDROcodone/Acetaminophen 5/325 mg Tablet PO PRN (16:06)
[2020-05-18] MEDS: VANCOMYCIN 2 GRAM/400 ML BAG 2 GM in Premix Bag 1 BAG IVPB SCH ×3 (04:17→19:34)
[2020-05-18] MEDS: Piperacillin/Tazobactam 3.375 GM in Sodium Chloride 0.9% 100 ML IVPB SCH ×4 (04:18→23:55)
[2020-05-18] MEDS: Furosemide 40 MG/4 ML VIAL SLOW IVP SCH ×2 (05:47→13:46)
[2020-05-18 06:13] LABS: #Eosinphils 0.2 thou/uL (0.0-0.7); #Lymphocytes 1.8 thou/uL (1.20-3.40); %Basophils 0.3 % (0.0-1.0); %Eosinophils 1.8 % (0.0-10.0); %Lymphocytes 19.8 % (21.0-51.0); %Monocytes 11.1 % (0.0-10.0); Hemoglobin 12.5 g/dL (14.0-18.0); Mean Corpuscular HGB CONC 31.5 g/dL (32.0-36.0); Mean Corpuscular Hemoglobin 24.1 pg (27.0-31.0); Mean Corpuscular Volume 76.6 fL (78.0-98.0); Mean Platelet Volume 10.7 fL (7.4-10.4); Platelet Count 156 thou/uL (130-400); RBC Distribution Width 15.6 % (11.5-14.5); Red Blood Cell (RBC) Count 5.17 mill/uL (4.70-6.10); White Blood Cell (WBC) Count 8.9 thou/uL (4.8-10.8)
[2020-05-18 06:25] LABS: Anion Gap 14 mmol/L (10-20); BUN (Urea Nitrogen) 13 mg/dL (8.9-20.6); Calc. Creatinine Clearance 477 mL/min (70-130); Calcium 8.3 mg/dL (7.8-10.44); Carbon Dioxide 23 mmol/L (22-29); Chloride 103 mmol/L (98-107); Glucose 112 mg/dL (70-105); Potassium 3.8 mmol/L (3.5-5.1); Sodium 136 mmol/L (136-145)
[2020-05-18] MEDS: Famotidine 20 MG TAB PO SCH ×2 (08:19→19:35)
[2020-05-18] MEDS: Enoxaparin Sodium 40 MG/0.4 ML SYRINGE SC SCH (08:19)
[2020-05-18] MEDS: Potassium Chloride 20 MEQ TAB PO SCH (08:19)
[2020-05-18] MEDS: HYDROcodone/Acetaminophen 5/325 mg Tablet PO PRN ×2 (11:37→19:35)
[2020-05-19] MEDS: Piperacillin/Tazobactam 3.375 GM in Sodium Chloride 0.9% 100 ML IVPB SCH ×4 (04:21→22:23)
[2020-05-19] MEDS: VANCOMYCIN 2 GRAM/400 ML BAG 2 GM in Premix Bag 1 BAG IVPB SCH ×2 (04:21→13:08)
[2020-05-19] MEDS: Furosemide 40 MG/4 ML VIAL SLOW IVP SCH ×2 (04:21→13:16)
[2020-05-19 06:46] LABS: #Eosinphils 0.2 thou/uL (0.0-0.7); #Lymphocytes 1.7 thou/uL (1.20-3.40); #Neutrophils 5.7 thou/uL (1.40-6.50); %Basophils 0.1 % (0.0-1.0); %Eosinophils 1.8 % (0.0-10.0); %Lymphocytes 20.3 % (21.0-51.0); %Monocytes 11.1 % (0.0-10.0); %Neutrophils 66.7 % (42.0-75.0); Hemoglobin 11.9 g/dL (14.0-18.0); Mean Corpuscular HGB CONC 31.2 g/dL (32.0-36.0); Mean Corpuscular Hemoglobin 23.7 pg (27.0-31.0); Mean Platelet Volume 10.2 fL (7.4-10.4); Platelet Count 173 thou/uL (130-400); RBC Distribution Width 15.7 % (11.5-14.5); White Blood Cell (WBC) Count 8.6 thou/uL (4.8-10.8)
[2020-05-19 07:06] LABS: Anion Gap 10 mmol/L (10-20); BUN (Urea Nitrogen) 10 mg/dL (8.9-20.6); Calc. Creatinine Clearance 497 mL/min (70-130); Calcium 8.4 mg/dL (7.8-10.44); Carbon Dioxide 28 mmol/L (22-29); Chloride 104 mmol/L (98-107); Glucose 112 mg/dL (70-105); Potassium 3.4 mmol/L (3.5-5.1); Sodium 139 mmol/L (136-145)
[2020-05-19] MEDS: Potassium Chloride 20 MEQ TAB PO SCH (08:53)
[2020-05-19] MEDS: Famotidine 20 MG TAB PO SCH ×2 (08:54→20:36)
[2020-05-19] MEDS: Enoxaparin Sodium 40 MG/0.4 ML SYRINGE SC SCH (08:54)
[2020-05-19] MEDS ORDERED: Potassium Chloride 20 MEQ TAB PO SCH (10:15)
[2020-05-19 12:42] LABS: Vancomycin, Trough 11.5 ug/mL
[2020-05-19] MEDS: Vancomycin 1.5 GRAM/300 ML BAG 1.5 GM in Premix Bag 1 BAG IVPB SCH ×2 (13:16→20:36)
[2020-05-19] MEDS: HYDROcodone/Acetaminophen 5/325 mg Tablet PO PRN (15:00)
[2020-05-20] MEDS: Vancomycin 1.5 GRAM/300 ML BAG 1.5 GM in Premix Bag 1 BAG IVPB SCH ×4 (02:28→20:38)
[2020-05-20] MEDS: Piperacillin/Tazobactam 3.375 GM in Sodium Chloride 0.9% 100 ML IVPB SCH ×4 (04:07→22:42)
[2020-05-20] MEDS: Furosemide 40 MG/4 ML VIAL SLOW IVP SCH ×2 (04:18→14:21)
[2020-05-20 06:58] LABS: #Eosinphils 0.2 thou/uL (0.0-0.7); #Lymphocytes 1.6 thou/uL (1.20-3.40); #Monocytes 0.9 thou/uL (0.11-0.59); #Neutrophils 6.4 thou/uL (1.40-6.50); %Basophils 0.4 % (0.0-1.0); %Eosinophils 1.7 % (0.0-10.0); %Lymphocytes 18.1 % (21.0-51.0); %Monocytes 9.8 % (0.0-10.0); %Neutrophils 70.1 % (42.0-75.0); Hemoglobin 11.8 g/dL (14.0-18.0); Mean Corpuscular HGB CONC 31.5 g/dL (32.0-36.0); Mean Corpuscular Hemoglobin 23.8 pg (27.0-31.0); Mean Corpuscular Volume 75.8 fL (78.0-98.0); Mean Platelet Volume 10.5 fL (7.4-10.4); Platelet Count 164 thou/uL (130-400); RBC Distribution Width 15.4 % (11.5-14.5); Red Blood Cell (RBC) Count 4.96 mill/uL (4.70-6.10); White Blood Cell (WBC) Count 9.1 thou/uL (4.8-10.8)
[2020-05-20 07:06] LABS: Anion Gap 14 mmol/L (10-20); BUN (Urea Nitrogen) 12 mg/dL (8.9-20.6); Calc. Creatinine Clearance 425 mL/min (70-130); Calcium 8.2 mg/dL (7.8-10.44); Carbon Dioxide 25 mmol/L (22-29); Chloride 104 mmol/L (98-107); Glucose 112 mg/dL (70-105); Potassium 3.5 mmol/L (3.5-5.1); Sodium 139 mmol/L (136-145)
[2020-05-20 07:06] LABS: Vancomycin, Trough 22.3 ug/mL
[2020-05-20] MEDS: Enoxaparin Sodium 40 MG/0.4 ML SYRINGE SC SCH (08:17)
[2020-05-20] MEDS: Potassium Chloride 20 MEQ TAB PO SCH (08:17)
[2020-05-20] MEDS: Famotidine 20 MG TAB PO SCH ×2 (08:17→20:37)
[2020-05-20] MEDS: HYDROcodone/Acetaminophen 5/325 mg Tablet PO PRN ×3 (14:20→22:41)
[2020-05-21] MEDS: Vancomycin 1.5 GRAM/300 ML BAG 1.5 GM in Premix Bag 1 BAG IVPB SCH ×2 (02:44→08:24)
[2020-05-21] MEDS: Piperacillin/Tazobactam 3.375 GM in Sodium Chloride 0.9% 100 ML IVPB SCH ×2 (04:48→11:10)
[2020-05-21 06:04] LABS: #Basophils 0.1 thou/uL (0.0-0.2); #Eosinphils 0.2 thou/uL (0.0-0.7); #Lymphocytes 1.5 thou/uL (1.20-3.40); #Monocytes 1.1 thou/uL (0.11-0.59); #Neutrophils 6.7 thou/uL (1.40-6.50); %Monocytes 11.4 % (0.0-10.0); %Neutrophils 69.5 % (42.0-75.0); Hemoglobin 11.8 g/dL (14.0-18.0); Mean Corpuscular HGB CONC 30.6 g/dL (32.0-36.0); Mean Corpuscular Hemoglobin 23.3 pg (27.0-31.0); Mean Corpuscular Volume 75.9 fL (78.0-98.0); Mean Platelet Volume 10.5 fL (7.4-10.4); Platelet Count 186 thou/uL (130-400); RBC Distribution Width 15.6 % (11.5-14.5); Red Blood Cell (RBC) Count 5.05 mill/uL (4.70-6.10); White Blood Cell (WBC) Count 9.6 thou/uL (4.8-10.8)
[2020-05-21 06:14] LABS: Anion Gap 12 mmol/L (10-20); BUN (Urea Nitrogen) 14 mg/dL (8.9-20.6); Calc. Creatinine Clearance 405 mL/min (70-130); Calcium 8.6 mg/dL (7.8-10.44); Carbon Dioxide 29 mmol/L (22-29); Chloride 103 mmol/L (98-107); Glucose 117 mg/dL (70-105); Potassium 3.6 mmol/L (3.5-5.1); Sodium 140 mmol/L (136-145)
[2020-05-21] MEDS: Furosemide 40 MG/4 ML VIAL SLOW IVP SCH ×2 (06:17→14:33)
[2020-05-21 08:02] VITALS: TEMP 97.6
[2020-05-21] MEDS: Famotidine 20 MG TAB PO SCH (08:21)
[2020-05-21] MEDS: Potassium Chloride 20 MEQ TAB PO SCH (08:21)
[2020-05-21] MEDS: HYDROcodone/Acetaminophen 5/325 mg Tablet PO PRN (08:23)
[2020-05-21] MEDS: Enoxaparin Sodium 40 MG/0.4 ML SYRINGE SC SCH (08:25)
[2020-05-21] MEDS ORDERED: Vancomycin 1.5 GRAM/300 ML BAG 1.5 GM in Premix Bag 1 BAG IVPB SCH (08:45)
[2020-05-21] MEDS ORDERED: Amlodipine 10 MG TAB PO SCH (10:15)
[2020-05-21 12:43] VITALS: BP 142/80
[2020-05-21] MEDS ORDERED: VANCOMYCIN 2 GRAM/400 ML BAG 2 GM in Premix Bag 1 BAG IVPB SCH (18:00)
[2020-05-22] MEDS ORDERED: Amlodipine 10 MG TAB PO SCH (09:00)
== END 2020-05-21 17:02 | disposition home or self-care (01) | DRG 300 ==
LOC: ERS 09:33 → T4-A 11:25
PROVIDERS: ADMIT Family Medicine; ATTEND Internal Medicine
DX: I87.2 Venous insufficiency (chronic) (peripheral) (principal); L03.115 Cellulitis of right lower limb; L03.116 Cellulitis of left lower limb; Z68.45 Body mass index [BMI] 70 or greater, adult; L97.819 Non-pressure chronic ulcer of other part of right lower leg with unspecified severity; L97.829 Non-pressure chronic ulcer of other part of left lower leg with unspecified severity; E66.01 Morbid (severe) obesity due to excess calories; Z20.822 Contact with and (suspected) exposure to COVID-19; I10 Essential (primary) hypertension; F17.210 Nicotine dependence, cigarettes, uncomplicated; Z90.49 Acquired absence of other specified parts of digestive tract; Z79.82 Long term (current) use of aspirin; Z79.899 Other long term (current) drug therapy
CPT/HCPCS: 36415; 80048; 80053; 80061; 80202; 83036; 83605; 83735; 83880; 84443; 84484; 85025; 85652; 86140; 87040; 87070; 87077; 87186; 87205; 87635; 93005; 93306; 96365; 96375; J0360; J1650; J1940; J2543; J3370; J3490; J7030; U0003; U0005

== ENCOUNTER 2020-12-07 21:21 | Emergency (ER) | payer OTHER ==
[2020-12-07 23:55] LABS: #Basophils 0.1 thou/uL (0.0-0.2); #Eosinphils 0.1 thou/uL (0.0-0.7); #Lymphocytes 1.7 thou/uL (1.20-3.40); #Monocytes 1.3 thou/uL (0.11-0.59); #Neutrophils 6.6 thou/uL (1.40-6.50); %Basophils 0.6 % (0.0-1.0); %Eosinophils 0.7 % (0.0-10.0); %Lymphocytes 17.8 % (21.0-51.0); %Monocytes 13.7 % (0.0-10.0); %Neutrophils 67.3 % (42.0-75.0); Hemoglobin 12.5 g/dL (14.0-18.0); Mean Corpuscular HGB CONC 32.5 g/dL (32.0-36.0); Mean Corpuscular Hemoglobin 24.8 pg (27.0-31.0); Mean Corpuscular Volume 76.2 fL (78.0-98.0); Mean Platelet Volume 10.3 fL (7.4-10.4); Platelet Count 167 thou/uL (130-400); RBC Distribution Width 15.6 % (11.5-14.5); Red Blood Cell (RBC) Count 5.07 mill/uL (4.70-6.10); White Blood Cell (WBC) Count 9.8 thou/uL (4.8-10.8)
[2020-12-08 00:18] LABS: ALT (SGPT) 17 U/L (8-55); AST (SGOT) 21 U/L (5-34); Albumin 3.3 g/dL (3.5-5.0); Alkaline Phosphatase 64 U/L (40-110); Anion Gap 13 mmol/L (10-20); BUN (Urea Nitrogen) 13 mg/dL (8.9-20.6); Bilirubin, Total 0.4 mg/dL (0.2-1.2); Calc. Creatinine Clearance 0 mL/min (70-130); Calcium 8.8 mg/dL (7.8-10.44); Carbon Dioxide 30 mmol/L (22-29); Chloride 101 mmol/L (98-107); Globulin 4.7 g/dL (2.4-3.5); Glucose 107 mg/dL (70-105); Potassium 3.7 mmol/L (3.5-5.1); Sodium 140 mmol/L (136-145)
== END 2020-12-08 00:35 | disposition home or self-care (01) ==
LOC: ERS 21:21
DX: R07.2 Precordial pain (principal)
CPT/HCPCS: 80053; 85025; 87070; 87077; 87205; 99284

== ENCOUNTER 2022-06-03 05:34 | Inpatient (IN) | payer OTHER ==
[2022-06-03 06:27] LABS: Actual Bicarbonate (HCO3v) 32 mEq/L (22-28); Base Excess 4.9 mEq/L (-2.0 to +3.0); Calcium, Ionized (venous) 1.08 mmol/L (1.16-1.32); Chloride (VBG) 98 mmol/L (98-106); Hemoglobin (Hb) 16.4 g/dL (13.1-17.2); Potassium (VBG) 3.17 mmol/L (3.70-5.30); Sodium 140.8 mmol/L (133-146); pH (venous) 7.38 (7.32-7.43)
[2022-06-03 06:31] LABS: #Eosinphils 0.1 thou/uL (0.0-0.7); #Lymphocytes 2.6 thou/uL (1.20-3.40); #Monocytes 1.2 thou/uL (0.11-0.59); #Neutrophils 9.1 thou/uL (1.40-6.50); %Eosinophils 0.5 % (0.0-10.0); %Lymphocytes 20.3 % (21.0-51.0); %Monocytes 9.2 % (0.0-10.0); Hemoglobin 15.6 g/dL (14.0-18.0); Mean Corpuscular HGB CONC 32.1 g/dL (32.0-36.0); Mean Corpuscular Hemoglobin 25.1 pg (27.0-31.0); Mean Corpuscular Volume 78.3 fl (78.0-98.0); Mean Platelet Volume 10.6 fL (7.4-10.4); Platelet Count 180 10x3/uL (130-400); RBC Distribution Width 15.4 % (11.5-14.5)
[2022-06-03] MEDS ORDERED: Magnesium 2 GM/50 ML BAG (IN WATER) ONE (06:32)
[2022-06-03] MEDS ORDERED: predniSONE 20 MG TAB ONE (06:32)
[2022-06-03] MEDS ORDERED: Ipratropium Bromide 2.5 ml Neb ONE (06:41)
[2022-06-03] MEDS ORDERED: Albuterol 2.5 MG/0.5 ML NEB ONE (06:42)
[2022-06-03] MEDS ORDERED: Doxycycline 100 MG CAP PO SCH ×2 (06:45→21:00)
[2022-06-03 06:52] LABS: ALT (SGPT) 23 U/L (8-55); AST (SGOT) 34 U/L (5-34); Albumin 3.8 g/dL (3.5-5.0); Alkaline Phosphatase 69 U/L (40-110); Anion Gap 14 mmol/L (10-20); BUN (Urea Nitrogen) 23 mg/dL (8.4-25.7); Bilirubin, Total 0.4 mg/dL (0.2-1.2); Calc. Creatinine Clearance 0 mL/min (70-130); Calcium 9.2 mg/dL (7.8-10.44); Carbon Dioxide 32 mmol/L (22-29); Chloride 98 mmol/L (98-107); Estimated GFR 96; Globulin 4.6 g/dL (2.4-3.5); Glucose 117 mg/dL (70-105); Protein, Total 8.4 g/dL (6.0-8.3); Sodium 141 mmol/L (136-145)
[2022-06-03] MEDS ORDERED: Potassium Chloride 20 MEQ TAB ONE (07:42)
[2022-06-03] MEDS ORDERED: Ondansetron PF 4 MG/2 ML Vial IVP PRN (08:16)
[2022-06-03] MEDS ORDERED: Ondansetron ODT 4 MG TAB PO PRN (08:16)
[2022-06-03] MEDS ORDERED: Acetaminophen 325 MG TAB PO PRN (08:16)
[2022-06-03] MEDS: guaiFENesin/DM ER PO SCH ×2 (09:00→20:27)
[2022-06-03 11:00] VITALS: BMI 72.5
[2022-06-03] MEDS: methylPREDNISolone Sod Succ 40 MG VIAL IVP SCH ×3 (13:21→23:12)
[2022-06-03] MEDS: Ipratropium/Albuterol 3 ML NEB NEB SCH ×3 (13:29→23:19)
[2022-06-03] MEDS: Nicotine 14 MG PATCH TD SCH (18:41)
[2022-06-04] MEDS: Ipratropium/Albuterol 3 ML NEB NEB SCH ×6 (03:22→23:00)
[2022-06-04] MEDS: methylPREDNISolone Sod Succ 40 MG VIAL IVP SCH ×4 (06:25→23:34)
[2022-06-04 08:07] LABS: Anion Gap 14 mmol/L (10-20); BUN (Urea Nitrogen) 21 mg/dL (8.4-25.7); Calc. Creatinine Clearance 349 mL/min (70-130); Calcium 9.4 mg/dL (7.8-10.44); Carbon Dioxide 28 mmol/L (22-29); Chloride 102 mmol/L (98-107); Estimated GFR 105; Glucose 163 mg/dL (70-105); Potassium 3.8 mmol/L (3.5-5.1); Sodium 140 mmol/L (136-145)
[2022-06-04 08:09] LABS: Hemoglobin 15.4 g/dL (14.0-18.0); Mean Corpuscular Hemoglobin 24.2 pg (27.0-31.0); Mean Corpuscular Volume 80.6 fl (78.0-98.0); Mean Platelet Volume 10.1 fL (7.4-10.4); Platelet Count 201 10x3/uL (130-400); RBC Distribution Width 15.4 % (11.5-14.5); Red Blood Cell (RBC) Count 6.35 mill/uL (4.70-6.10); White Blood Cell (WBC) Count 14.6 10x3/uL (4.8-10.8)
[2022-06-04] MEDS: Lisinopril 20 MG TAB PO SCH (08:35)
[2022-06-04] MEDS: Aspirin 81 mg Enteric Coated Tablet PO SCH (08:35)
[2022-06-04] MEDS: Torsemide 20 MG TAB PO SCH (08:35)
[2022-06-04] MEDS: guaiFENesin/DM ER PO SCH ×2 (08:35→20:24)
[2022-06-04] MEDS: Hydrochlorothiazide 25 MG TAB PO SCH (08:36)
[2022-06-04] MEDS: Nicotine 14 MG PATCH TD SCH (08:40)
[2022-06-04] MEDS ORDERED: Famotidine 20 MG TAB PO SCH (09:00)
[2022-06-04 09:45] LABS: #Lymphocytes 1.8 thou/uL (1.20-3.40); #Monocytes 1.2 thou/uL (0.11-0.59); #Neutrophils 11.6 thou/uL (1.40-6.50); %Basophils 0.1 % (0.0-1.0); %Eosinophils 0.1 % (0.0-10.0); %Monocytes 8.2 % (0.0-10.0); %Neutrophils 79.6 % (42.0-75.0); Platelet Morphology Comment Appears Adequate; RBC Morphology Normal
[2022-06-04] MEDS: Famotidine 20 MG TAB PO SCH (20:25)
[2022-06-05] MEDS: Ipratropium/Albuterol 3 ML NEB NEB SCH ×6 (03:13→20:06)
[2022-06-05] MEDS: methylPREDNISolone Sod Succ 40 MG VIAL IVP SCH ×4 (05:11→23:25)
[2022-06-05 07:33] LABS: #Lymphocytes 1.6 thou/uL (1.20-3.40); #Monocytes 0.9 thou/uL (0.11-0.59); #Neutrophils 13.6 thou/uL (1.40-6.50); %Basophils 0.1 % (0.0-1.0); %Eosinophils 0.1 % (0.0-10.0); %Lymphocytes 9.6 % (21.0-51.0); %Monocytes 5.8 % (0.0-10.0); %Neutrophils 84.4 % (42.0-75.0); Anion Gap 18 mmol/L (10-20); BUN (Urea Nitrogen) 27 mg/dL (8.4-25.7); Calc. Creatinine Clearance 345 mL/min (70-130); Calcium 9.1 mg/dL (7.8-10.44); Carbon Dioxide 26 mmol/L (22-29); Chloride 99 mmol/L (98-107); Estimated GFR 104; Glucose 157 mg/dL (70-105); Hemoglobin 15.7 g/dL (14.0-18.0); Mean Corpuscular HGB CONC 31.8 g/dL (32.0-36.0); Mean Corpuscular Hemoglobin 25.4 pg (27.0-31.0); Mean Platelet Volume 10.7 fL (7.4-10.4); Platelet Count 192 10x3/uL (130-400); Potassium 3.6 mmol/L (3.5-5.1); RBC Distribution Width 15.9 % (11.5-14.5); Red Blood Cell (RBC) Count 6.18 mill/uL (4.70-6.10); Sodium 139 mmol/L (136-145); White Blood Cell (WBC) Count 16.1 10x3/uL (4.8-10.8)
[2022-06-05] MEDS: guaiFENesin/DM ER PO SCH ×2 (08:08→20:15)
[2022-06-05] MEDS: Torsemide 20 MG TAB PO SCH (08:08)
[2022-06-05] MEDS: Aspirin 81 mg Enteric Coated Tablet PO SCH (08:09)
[2022-06-05] MEDS: Famotidine 20 MG TAB PO SCH ×2 (08:09→20:16)
[2022-06-05] MEDS: Nicotine 14 MG PATCH TD SCH (08:09)
[2022-06-05] MEDS: Hydrochlorothiazide 25 MG TAB PO SCH (08:09)
[2022-06-05] MEDS: Lisinopril 20 MG TAB PO SCH (08:09)
[2022-06-06] MEDS: Ipratropium/Albuterol 3 ML NEB NEB SCH ×3 (04:01→10:58)
[2022-06-06] MEDS: methylPREDNISolone Sod Succ 40 MG VIAL IVP SCH (06:02)
[2022-06-06 06:37] LABS: #Basophils 0.1 thou/uL (0.0-0.2); #Lymphocytes 1.6 thou/uL (1.20-3.40); #Neutrophils 13.2 thou/uL (1.40-6.50); %Basophils 0.4 % (0.0-1.0); %Eosinophils 0.2 % (0.0-10.0); %Monocytes 6.5 % (0.0-10.0); %Neutrophils 82.9 % (42.0-75.0); Hemoglobin 14.9 g/dL (14.0-18.0); Mean Corpuscular HGB CONC 30.2 g/dL (32.0-36.0); Mean Corpuscular Hemoglobin 23.8 pg (27.0-31.0); Mean Corpuscular Volume 78.7 fl (78.0-98.0); Platelet Count 206 10x3/uL (130-400); RBC Distribution Width 15.1 % (11.5-14.5); Red Blood Cell (RBC) Count 6.26 mill/uL (4.70-6.10)
[2022-06-06 07:00] LABS: Anion Gap 13 mmol/L (10-20); BUN (Urea Nitrogen) 37 mg/dL (8.4-25.7); Calc. Creatinine Clearance 322 mL/min (70-130); Calcium 9.1 mg/dL (7.8-10.44); Carbon Dioxide 31 mmol/L (22-29); Chloride 100 mmol/L (98-107); Estimated GFR 100; Glucose 158 mg/dL (70-105); Potassium 3.4 mmol/L (3.5-5.1); Sodium 141 mmol/L (136-145)
[2022-06-06] MEDS: guaiFENesin/DM ER PO SCH (08:44)
[2022-06-06] MEDS: Famotidine 20 MG TAB PO SCH (08:44)
[2022-06-06] MEDS: Torsemide 20 MG TAB PO SCH (08:45)
[2022-06-06] MEDS: Hydrochlorothiazide 25 MG TAB PO SCH (08:45)
[2022-06-06] MEDS: Aspirin 81 mg Enteric Coated Tablet PO SCH (08:45)
[2022-06-06] MEDS: Nicotine 14 MG PATCH TD SCH (08:46)
[2022-06-06] MEDS: Lisinopril 20 MG TAB PO SCH (08:46)
[2022-06-06 08:49] VITALS: BP 131/67
[2022-06-06 09:11] VITALS: TEMP 97.9
[2022-06-06] MEDS ORDERED: Potassium Chloride 20 MEQ TAB PO SCH (10:30)
== END 2022-06-06 12:50 | disposition home or self-care (01) | DRG 189 ==
LOC: ERS 05:34 → T4-B 08:05 → OBSVTOIN 06-05 10:51
PROVIDERS: ADMIT Internal Medicine; ATTEND Internal Medicine
DX: J96.01 Acute respiratory failure with hypoxia (principal); Z68.45 Body mass index [BMI] 70 or greater, adult; J44.1 Chronic obstructive pulmonary disease with (acute) exacerbation; I11.0 Hypertensive heart disease with heart failure; I50.9 Heart failure, unspecified; F17.210 Nicotine dependence, cigarettes, uncomplicated; E66.01 Morbid (severe) obesity due to excess calories; Z90.49 Acquired absence of other specified parts of digestive tract; Z79.899 Other long term (current) drug therapy; Z79.82 Long term (current) use of aspirin; Z71.6 Tobacco abuse counseling
CPT/HCPCS: 36415; 36416; 71045; 80048; 80053; 82805; 84484; 85025; 87070; 87205; 93005; 94640; 96365; 96375; 96376; G0378; J1956; J2920; J3475; J7512; J7611; J7620

== ENCOUNTER 2023-02-09 15:13 | Outpatient (CLI) | payer MEDICARE, OTHER | END 2023-02-09 15:14 | disposition home or self-care (01) | LOC: ULT 15:13 | PROVIDERS: ATTEND Internal Medicine Interventional Cardiology | DX: I83.893 Varicose veins of bilateral lower extremities with other complications (principal); R06.02 Shortness of breath; I08.1 Rheumatic disorders of both mitral and tricuspid valves; R94.39 Abnormal result of other cardiovascular function study | CPT/HCPCS: 93306; 93923 ==